=== PATIENT | male | born 1945 | race Caucasian/White ===

== ENCOUNTER 2023-10-13 08:50 | Outpatient (OUT) | payer MEDICARE, SELFPAY ==
[2023-10-14 04:07] LABS: PSA, Free 0.73 ng/mL; Prostate Specific Ag 3.5 ng/mL (0.0-4.0)
== END 2023-10-13 08:51 | disposition home or self-care (01) ==
PROVIDERS: Visit Provider Nurse Practitioner Family
DX: R97.20 Elevated prostate specific antigen [PSA] (principal)
CPT/HCPCS: 36415; 84153; 84154

== ENCOUNTER 2024-10-12 08:08 | Outpatient (OUT) | payer MEDICARE, SELFPAY ==
--- OUTSIDE RECORDS SUMMARY | 2024-10-12 08:12 | XMS_ITS | CCD ---
Author Organization [place] [facility] Care Team Providers Care Rotary Driller Name Role Phone BELLA DE PAZ Primary Care Unavailable GUANACO ESCAMILLA Attending Unavailable GUANACO ESCAMILLA Consulting Unavailable GUANACO ESCAMILLA Admitting Unavailable Problems Problem Classification Problem Date Documented Da te Episodic/Chronic Diabetes mellitus without complication (1 source) Other abnormal glucose; Translations: [OTHER ABNORMAL GLUCOSE] Onset: 03-26-2023 Episodic Essential hypertension (1 source) Essential (primary) hypertension; Translations: [ESSENTIAL PRIMARY HYPERTENSION] Onset: 03-26-2023 Chronic Other screening for suspected conditions (not mental disorders or infectious disease) (1 source) Encounter for screening for malignant neoplasm of prostate; Translations: [ENC SCREEN MALIG NEOPLASM PROSTATE] Onset: 03-26-2023 Episodic Results Test Name Value Interpretation Reference Range Facil ity INSULINon 03-23-2023 Insulin 10.4 uIU/mL Normal 2.6-24.9 [facility] Comment on above: Performed By: #### I NSULIN #### [facility] [address] [place] [address] Dr. Therese Vincent CBC AUTO DIFFon 03-22-2023 BASO # 0.1 103/ul Normal 0.0-0.1 [facility] Comment on above: Performed By: #### C BC #### [facility] [address] [place] [address] Dr. Therese Vincent Basophils/100 WBC (Bld) 0.9 % Normal 0.2-2.0 [facility] Comment on above: Performed By: #### C BC #### [facility] [address] [place] [address] Dr. Therese Vincent EO # 0.1 103/ul Normal 0.0-0.7 [facility] Comment on above: Performed By: #### C BC #### [facility] [address] [place] [address] Dr. Therese Vincent Eosinophils/100 WBC (Bld) 2.2 % Normal 0.9-7.0 [facility] Comment on above: Performed By: #### C BC #### [facility] [address] [place] [address] Dr. Therese Vincent Erythrocyte distribution width (RBC) [Ratio] 13.4 % Normal 11.0-15.0 [facility] Comment on above: Performed By: #### C BC #### [facility] [address] [place] [address] Dr. Therese Vincent Hematocrit (Bld) [Volume fraction] 44.8 % Normal 42.0-54.0 [facility] Comment on above: Performed By: #### C BC #### [facility] [address] [place] [address] Dr. Therese Vincent Hemoglobin (Bld) [Mass/Vol] 14.8 g/dL Normal 14.0-18.0 [facility] Comment on above: Performed By: #### C BC #### [facility] [address] [place] [address] Dr. Therese Vincent IG # 0.02 10e3/ul Normal 0.00-0.03 [facility] Comment on above: Performed By: #### C BC #### [facility] [address] [place] [address] Dr. Therese Vincent IG % 0.3 % Normal 0.0-0.5 [facility] Comment on above: Performed By: #### C BC #### [facility] [address] [place] [address] Dr. Therese Vincent LYMPH # 2.0 103/ul Normal 1.2-3.8 [facility] Comment on above: Performed By: #### C BC #### [facility] [address] [place] [address] Dr. Therese Vincent Lymphocytes/100 WBC (Bld) 33.9 % Normal 20.5-60.0 [facility] Comment on above: Performed By: #### C BC #### [facility] [address] [place] [address] Dr. Therese Vincent MANUAL DIFF REQ NO Normal [facility] Comment on above: Performed By: #### C BC #### [facility] [address] [place] [address] Dr. Therese Vincent MCH (RBC) [Entitic mass] 28.2 pg Normal 25.9-34.0 [facility] Comment on above: Performed By: #### C BC #### [facility] [address] [place] [address] Dr. Therese Vincent MCHC (RBC) [Mass/Vol] 33.0 g/dL Normal 29.9-35.2 [facility] Comment on above: Performed By: #### C BC #### [facility] [address] [place] [address] Dr. Therese Vincent MCV (RBC) [Entitic vol] 85.3 fL Normal 80.0-94.0 [facility] Comment on above: Performed By: #### C BC #### [facility] [address] [place] [address] Dr. Therese Vincent MONO # 0.3 103/ul Normal 0.3-0.8 [facility] Comment on above: Performed By: #### C BC #### [facility] [address] [place] [address] Dr. Therese Vincent Monocytes/100 WBC (Bld) 5.5 % Normal 1.7-12.0 [facility] Comment on above: Performed By: #### C BC #### [facility] [address] [place] [address] Dr. Therese Vincent NEUT # 3.3 103/ul Normal 1.4-6.5 [facility] Comment on above: Performed By: #### C BC #### [facility] [address] [place] [address] Dr. Therese Vincent Neutrophils/100 WBC (Bld) 57.2 % Normal 43.0-75.0 [facility] Comment on above: Performed By: #### C BC #### [facility] [address] [place] [address] Dr. Therese Vincent Platelet mean volume (Bld) [Entitic vol] 8.8 fL Critically low 9.5-13.5 [facility] Comment on above: Performed By: #### C BC #### [facility] [address] [place] [address] Dr. Therese Vincent PLT 321 103/ul Normal 150-450 [facility] Comment on above: Performed By: #### C BC #### [facility] [address] [place] [address] Dr. Therese Vincent RBC 5.25 106/ul Normal 4.70-6.10 [facility] Comment on above: Performed By: #### C BC #### [facility] [address] [place] [address] Dr. Therese Vincent WBC 5.8 103/ul Normal 4.0-11.0 [facility] Comment on above: Performed By: #### C BC #### [facility] [address] [place] [address] Dr. Therese Vincent FREE THYROXINE INDEX T7on FTI 2.70 Normal 1.30-4.50 [facility] Comment on above: Performed By: #### T SH, LIPID, CMP, T7, URIC #### [facility] [address] [place] [address] Dr. Therese Vincent T3U 29.0 % Critically low 33.0-40.0 [facility] Comment on above: Performed By: #### T SH, LIPID, CMP, T7, URIC #### [facility] [address] [place] [address] Dr. Therese Vincent T4 [Mass/Vol] 9.30 ug/dL Normal 4.50-12.10 [facility] Comment on above: Performed By: #### T SH, LIPID, CMP, T7, URIC #### [facility] [address] [place] [address] Dr. Therese Vincent GLYCOHEMOGLOBIN A1Con 2022 ADA RECOMMENDATION SEE BELOW Normal [facility] Comment on above: Result Comment: ADA RECOMMENDED LIMIT 4.0 - 6.0 ADA THERAPEUTIC TARGET < 7.0 ACTION SUGGESTED > 7.0 Performed By: #### A 1C #### [facility] [address] [address] [address] Therese Vincent Glucose [Mass/Vol] 108 mg/dL Normal [facility] Comment on above: Performed By: #### A 1C #### [facility] [address] [address] [address] Therese Vincent HbA1c (Bld) [Mass fraction] 5.4 % Normal 4.5-6.2 [facility] Comment on above: Performed By: #### A 1C #### [facility] [address] [address] [address] Therese Vincent LIPID PROFILEon 03-22-2023 CHOL-HDL RATIO NORM SEE BELOW Normal [facility] Comment on above: Result Comment: 3.3 - 4.4 LOW RISK 4.4 - 7.1 AVERAGE RISK 7.1 - 11.0 MODERATE RISK >11.0 HIGH RISK Performed By: #### T SH, LIPID, CMP, T7, URIC #### [facility] [address] [address] [address] Therese Vincent Cholesterol [Mass/Vol] 205 mg/dL Critically high <=200 [facility] Comment on above: Performed By: #### T SH, LIPID, CMP, T7, URIC #### [facility] [address] [address] [address] Therese Vincent Cholesterol in HDL [Mass/Vol] 47 mg/dL Normal 40-60 [facility] Comment on above: Performed By: #### T SH, LIPID, CMP, T7, URIC #### [facility] [address] [address] [address] Therese Vincent Cholesterol in LDL [Mass/Vol] 136.0 mg/dL Normal [facility] Comment on above: Performed By: #### T SH, LIPID, CMP, T7, URIC #### [facility] [address] [address] [address] Therese Vincent Cholesterol.total/Cho lesterol in HDL [Mass ratio] 4.4 {ratio} Normal [facility] Comment on above: Performed By: #### T SH, LIPID, CMP, T7, URIC #### [facility] [address] [address] [address] Therese Vincent HDL NORMAL > or = 60 mg/dl - LOW CARDIOVASCULAR RISK <40 mg/dl - HIGH CARDIOVASCULAR RISK Normal [facility] Comment on above: Performed By: #### T SH, LIPID, CMP, T7, URIC #### [facility] [address] [address] [address] Therese Vincent LDL CALC NORMAL SEE BELOW Normal [facility] Comment on above: Result Comment: <100 mg/dl OPTIMAL 100 - 129 mg/dl NEAR OR ABOVE OPTIMAL 130 - 159 mg/dl BORDERLINE HIGH 160 - 189 mg/dl HIGH >190 mg/dl VERY HIGH Performed By: #### T SH, LIPID, CMP, T7, URIC #### [facility] [address] [address] [address] Therese Vincent Triglyceride [Mass/Vol] 110 mg/dL Normal <=150 [facility] Comment on above: Performed By: #### T SH, LIPID, CMP, T7, URIC #### [facility] [address] [address] [address] Therese Vincent VLDL CALC 22.0 mg/dL Normal [facility] Comment on above: Performed By: #### T SH, LIPID, CMP, T7, URIC #### [facility] [address] [address] [address] Therese Vincent PROF 14(COMP METB)on 023 Albumin [Mass/Vol] 4.0 g/dL Normal 3.4-5.0 [facility] Comment on above: Performed By: #### T SH, LIPID, CMP, T7, URIC #### [facility] [address] [address] [address] Therese Vincent Albumin/Globulin [Mass ratio] 1.0 {ratio} Normal [facility] Comment on above: Performed By: #### T SH, LIPID, CMP, T7, URIC #### [facility] [address] [address] [address] Therese Vincent ALP [Catalytic activity/Vol] 77 U/L Normal 46-116 [facility] Comment on above: Performed By: #### T SH, LIPID, CMP, T7, URIC #### [facility] [address] [place] [address] Dr. Therese Vincent ALT [Catalytic activity/Vol] 27 U/L Normal 16-63 [facility] Comment on above: Performed By: #### T SH, LIPID, CMP, T7, URIC #### [facility] [address] [place] [address] Dr. Therese Vincent Anion gap [Moles/Vol] 12.8 mmol/L Normal [facility] Comment on above: Performed By: #### T SH, LIPID, CMP, T7, URIC #### [facility] [address] [place] [address] Dr. Therese Vincent AST [Catalytic activity/Vol] 14 U/L Critically low 15-37 [facility] Comment on above: Performed By: #### T SH, LIPID, CMP, T7, URIC #### [facility] [address] [place] [address] Dr. Therese Vincent Bilirubin [Mass/Vol] 0.6 mg/dL Normal 0.2-1.0 [facility] Comment on above: Performed By: #### T SH, LIPID, CMP, T7, URIC #### [facility] [address] [place] [address] Dr. Therese Vincent Calcium [Mass/Vol] 9.7 mg/dL Normal 8.5-10.1 [facility] Comment on above: Performed By: #### T SH, LIPID, CMP, T7, URIC #### [facility] [address] [place] [address] Dr. Therese Vincent Chloride [Moles/Vol] 106 mmol/L Normal 98-107 [facility] Comment on above: Performed By: #### T SH, LIPID, CMP, T7, URIC #### [facility] [address] [place] [address] Dr. Therese Vincent CO2 [Moles/Vol] 28.8 mmol/L Normal 21.0-32.0 [facility] Comment on above: Performed By: #### T SH, LIPID, CMP, T7, URIC #### [facility] [address] [address] [address] Therese Vincent Creatinine [Mass/Vol] 1.18 mg/dL Normal 0.70-1.30 [facility] Comment on above: Performed By: #### T SH, LIPID, CMP, T7, URIC #### [facility] [address] [place] [address] Dr. Therese Vincent EGFR-AF [place] >60 Normal >=60 [facility] Comment on above: Performed By: #### T SH, LIPID, CMP, T7, URIC #### [facility] [address] [place] [address] Dr. Therese Vincent EGFR-NON AF [place] =60 Normal >=60 [facility] Comment on above: Performed By: #### T SH, LIPID, CMP, T7, URIC #### [facility] [address] [place] [address] Dr. Therese Vincent Globulin (S) [Mass/Vol] 3.9 g/dL Normal [facility] Comment on above: Performed By: #### T SH, LIPID, CMP, T7, URIC #### [facility] [address] [place] [address] Dr. Therese Vincent Glucose [Mass/Vol] 109 mg/dL Critically high 74-106 [facility] Comment on above: Performed By: #### T SH, LIPID, CMP, T7, URIC #### [facility] [address] [place] [address] Dr. Therese Vincent Potassium [Moles/Vol] 4.6 mmol/L Normal 3.5-5.1 [facility] Comment on above: Performed By: #### T SH, LIPID, CMP, T7, URIC #### [facility] [address] [place] [address] Dr. Therese Vincent Protein [Mass/Vol] 7.9 g/dL Normal 6.4-8.2 [facility] Comment on above: Performed By: #### T SH, LIPID, CMP, T7, URIC #### [facility] [address] [place] [address] Dr. Therese Vincent Sodium [Moles/Vol] 143 mmol/L Normal 136-145 [facility] Comment on above: Performed By: #### T SH, LIPID, CMP, T7, URIC #### [facility] [address] [address] [address] Therese Vincent Urea nitrogen [Mass/Vol] 14.0 mg/dL Normal 7.0-18.0 [facility] Comment on above: Performed By: #### T SH, LIPID, CMP, T7, URIC #### [facility] [address] [address] [address] Therese Vincent Urea nitrogen/Creatinine [Mass ratio] 11.9 mg/mg Normal [facility] Comment on above: Performed By: #### T SH, LIPID, CMP, T7, URIC #### [facility] [address] [address] [address] Therese Vincent TSHon 03-22-2023 TSH 3.745 uIU/mL Critically high 0.358-3.740 [facility] Comment on above: Performed By: #### T SH, LIPID, CMP, T7, URIC #### [facility] [address] [address] [address] Therese Vincent URIC ACID SERUMon 03-22-2023 Urate [Mass/Vol] 3.7 mg/dL Normal 3.5-7.2 [facility] Comment on above: Performed By: #### T SH, LIPID, CMP, T7, URIC #### [facility] [address] [address] [address] Therese Vincent Encounters Encounter Date Encounter Type Care Provider Facility Start: 03-26-2023 Encounter for genera l adult medical examination without abnormal findings GUANACO ESCAMILLA [facility] Start: 03-22-2023 End: 03-23-2023 ambulatory BELLA DE PAZ Facility:[facility] Start: 03-22-2023 End: 03-23-2023 Encounter for general adult medical examination without abnormal findings BELLA DE PAZ Facility:[facility] Procedures Date Procedure Procedure Detail Performing Clinician Start: 03-22-2023 PSA screening BELLA PENA Comment on above: Performed By: #### [facility] #### [facility] [address] [place], [place] [address] Dr. Therese Vincent Payers Date Payer Category Payer Medicare [id number] 1945 Unknown [id number] Summary Purpose Family History No Family History Records Found Advance Directives No Advanced Directives Records Found Additional Source Comments (unrecognized sect ion and content) No Status Records Found INFORMATION SOURCE (unrecogn ized section and content) DATE CREATED AUTHOR 03/26/[address] [facility] FOR RECORDS PERTAINING TO PATIENTS WHO ARE OR HAVE BEEN ENROLLED IN A CHEMICAL DEPENDENCY/SUBSTANCEABUSE PROGRAM, SOME INFORMATION MAY BE OMITTED. This clinical summary was aggregated from multiple sources. Caution should be exercised in using it in the provision of clinical care. This summary normalizes information from multiple sources, and as a consequence, information in this document may materially change the coding, format and clinical context of patient data. In addition, data may be omitted in some cases. CLINICAL DECISIONS SHOULD BE BASED ON THE PRIMARY CLINICAL RECORDS. [facility]. provides no warranty or guarantee of the accuracy or completeness of information in this document.
[2024-10-12 08:30] LABS: Basophils Percent Auto 0.7 % (0.2-2.0); Eosinophils Absolute Auto 0.2 10^3/uL (0.0-0.7); Eosinophils Percent Auto 3.5 % (0.9-7.0); Hematocrit 41.4 % (42.0-54.0); Hemoglobin 13.6 g/dL (14.0-18.0); Immature Granulocytes Abs Auto 0.08 10^3/uL (0.00-0.03); Immature Granulocytes Pct Auto 1.4 % (0.0-0.5); Mean Corpuscular HGB Conc 32.9 g/dL (29.9-35.2); Mean Corpuscular Hemoglobin 28.1 pg (25.9-34.0); Mean Corpuscular Volume 85.5 fL (80.0-94.0); Mean Platelet Volume 8.9 fL (9.5-13.5); Monocytes Absolute Auto 0.3 10^3/uL (0.3-0.8); Neutrophils Percent Auto 53.4 % (43.0-75.0); Platelet Count 295 10^3/uL (150-450); Red Blood Count 4.84 10^6/uL (4.70-6.10); Red Cell Distribution Width 13.2 % (11.0-15.0); White Blood Count 5.7 10^3/uL (4.0-11.0)
[2024-10-12 08:59] LABS: Alanine Aminotransferase 28 U/L (16-63); Albumin Globulin Ratio 1.1; Albumin Level 3.6 g/dL (3.4-5.0); Alkaline Phosphatase 78 U/L (46-116); Anion Gap 11.7; Aspartate Amino Transferase 18 U/L (15-37); BUN Creatinine Ratio 15.7; Bilirubin Total 0.7 mg/dL (0.2-1.0); Calcium 8.8 mg/dL (8.5-10.1); Carbon Dioxide 29.1 mmol/L (21.0-32.0); Chloride 108 mmol/L (98-107); Chol HDL Ratio 4.1; Cholesterol 191 mg/dL (<=200); Estimated GFR (African America >60 (>=60 mL/min/1.73m^2); Estimated GFR (Non-African Ame >60 (>=60 mL/min/1.73m^2); Globulin 3.2 g/dL; Glucose 103 mg/dL (74-106); HDL Cholesterol 47 mg/dL (40-60); LDL Cholesterol Calculated 120.6 mg/dL; Potassium 4.8 mmol/L (3.5-5.1); Sodium 144 mmol/L (136-145); Thyroid Stimulating Hormone 3.142 uIU/mL (0.358-3.740); Total Protein 6.8 g/dL (6.4-8.2); Triglycerides 117 mg/dL (<=150); Uric Acid 3.8 mg/dL (3.5-7.2); VLDL CHOLESTEROL 23.4 mg/dL
[2024-10-12 09:26] LABS: Estimated Average Glucose 108 mg/dL; Glycohemoglobin A1C 5.4 % (4.5-6.2)
[2024-10-12 10:52] LABS: Prostate Specific Antigen Scrn 4.54 ng/mL (<=4.00)
[2024-10-14 10:07] LABS: Insulin 7.5 uIU/mL (2.6-24.9)
== END 2024-10-12 08:09 | disposition home or self-care (01) ==
LOC: LAB 08:10
PROVIDERS: PCP Nurse Practitioner Family; Visit Provider Nurse Practitioner Family
DX: R73.09 Other abnormal glucose (principal); I10 Essential (primary) hypertension; E03.9 Hypothyroidism, unspecified; Z12.5 Encounter for screening for malignant neoplasm of prostate
CPT/HCPCS: 36415; 80053; 80061; 83036; 83525; 84436; 84443; 84481; 84550; 85025; G0103

== ENCOUNTER 2024-10-16 08:40 | Outpatient (OUT) | payer MEDICARE, SELFPAY ==
[2024-10-17 04:08] LABS: PSA, Free 0.85 ng/mL; Prostate Specific Ag 4.2 ng/mL (0.0-4.0)
== END 2024-10-16 08:41 | disposition home or self-care (01) ==
LOC: LAB 08:43
PROVIDERS: PCP Nurse Practitioner Family; Visit Provider Nurse Practitioner Family
DX: R97.20 Elevated prostate specific antigen [PSA] (principal)
CPT/HCPCS: 36415; 84153; 84154

== ENCOUNTER 2024-10-29 13:54 | Outpatient (OUT) | payer MEDICARE, SELFPAY ==
--- OUTSIDE RECORDS SUMMARY | 2024-10-29 14:14 | XMS_ITS | CCD ---
Author Organization [facility] Care Team Providers [employer] Name Role Phone BELLA DE PAZ Primary [...] 03-23-2023 Insulin 10.4 uIU/mL Normal 2.6-24.9 [facility] Comment on above: Performed By: #### I NSULIN #### [facility] [address] [place] [address] Dr. Therese Vincent CBC AUTO DIFFon 03-22-2023 BASO # 0.1 103/ul Normal 0.0-0.1 [facility] Comment on above: Performed By: #### C BC #### [facility] [address] [place] [address] Dr. Therese Vincent Basophils/100 WBC (Bld) 0.9 % Normal 0.2-2.0 [facility] Comment on above: Performed By: #### C BC #### [facility] [address] [place] [address] Dr. Therese Vincent EO # 0.1 103/ul Normal 0.0-0.7 [facility] Comment on above: Performed By: #### C BC #### [facility] [address] [place] [address] Dr. Therese Vincent Eosinophils/100 WBC (Bld) 2.2 % Normal 0.9-7.0 [facility] Comment on above: Performed By: #### C BC #### [facility] [address] [place] [address] Dr. Therese Vincent Erythrocyte distribution width (RBC) [Ratio] 13.4 % Normal 11.0-15.0 [facility] Comment on above: Performed By: #### C BC #### [facility] [address] [place] [address] Dr. Therese Vincent Hematocrit (Bld) [Volume fraction] 44.8 % Normal 42.0-54.0 [facility] Comment on above: Performed By: #### C BC #### [facility] [address] [place] [address] Dr. Therese Vincent Hemoglobin (Bld) [Mass/Vol] 14.8 g/dL Normal 14.0-18.0 [facility] Comment on above: Performed By: #### C BC #### [facility] [address] [place] [address] Dr. Therese Vincent IG # 0.02 10e3/ul Normal 0.00-0.03 [facility] Comment on above: Performed By: #### C BC #### [facility] [address] [place] [address] Dr. Therese Vincent IG % 0.3 % Normal 0.0-0.5 [facility] Comment on above: Performed By: #### C BC #### [facility] [address] [place] [address] Dr. Therese Vincent LYMPH # 2.0 103/ul Normal 1.2-3.8 [facility] Comment on above: Performed By: #### C BC #### [facility] [address] [place] [address] Dr. Therese Vincent Lymphocytes/100 WBC (Bld) 33.9 % Normal 20.5-60.0 [facility] Comment on above: Performed By: #### C BC #### [facility] [address] [place] [address] Dr. Therese Vincent MANUAL DIFF REQ NO Normal [facility] Comment on above: Performed By: #### C BC #### [facility] [address] [place] [address] Dr. Therese Vincent MCH (RBC) [Entitic mass] 28.2 pg Normal 25.9-34.0 [facility] Comment on above: Performed By: #### C BC #### [facility] [address] [place] [address] Dr. Therese Vincent MCHC (RBC) [Mass/Vol] 33.0 g/dL Normal 29.9-35.2 [facility] Comment on above: Performed By: #### C BC #### [facility] [address] [place] [address] Dr. Therese Vincent MCV (RBC) [Entitic vol] 85.3 fL Normal 80.0-94.0 [facility] Comment on above: Performed By: #### C BC #### [facility] [address] [place] [address] Dr. Therese Vincent MONO # 0.3 103/ul Normal 0.3-0.8 [facility] Comment on above: Performed By: #### C BC #### [facility] [address] [place] [address] Dr. Therese Vincent Monocytes/100 WBC (Bld) 5.5 % Normal 1.7-12.0 [facility] Comment on above: Performed By: #### C BC #### [facility] [address] [place] [address] Dr. Therese Vincent NEUT # 3.3 103/ul Normal 1.4-6.5 [facility] Comment on above: Performed By: #### C BC #### [facility] [address] [place] [address] Dr. Therese Vincent Neutrophils/100 WBC (Bld) 57.2 % Normal 43.0-75.0 [facility] Comment on above: Performed By: #### C BC #### [facility] [address] [place] [address] Dr. Therese Vincent Platelet mean volume (Bld) [Entitic vol] 8.8 fL Critically low 9.5-13.5 [facility] Comment on above: Performed By: #### C BC #### [facility] [address] [place] [address] Dr. Therese Vincent PLT 321 103/ul Normal 150-450 [facility] Comment on above: Performed By: #### C BC #### [facility] [address] [place] [address] Dr. Therese Vincent RBC 5.25 106/ul Normal 4.70-6.10 [facility] Comment on above: Performed By: #### C BC #### [facility] [address] [place] [address] Dr. Therese Vincent WBC 5.8 103/ul Normal 4.0-11.0 [facility] Comment on above: Performed By: #### C BC #### [facility] [address] [place] [address] Dr. Therese Vincent FREE THYROXINE INDEX T7on FTI 2.70 Normal 1.30-4.50 [facility] Comment on above: Performed By: #### T SH, LIPID, CMP, T7, URIC #### [facility] [address] [place] [address] Dr. Therese Vincent T3U 29.0 % Critically low 33.0-40.0 [facility] Comment on above: Performed By: #### T SH, LIPID, CMP, T7, URIC #### [facility] [address] [place] [address] Dr. Therese Vincent T4 [Mass/Vol] 9.30 ug/dL Normal 4.50-12.10 [facility] Comment on above: Performed By: #### T SH, LIPID, CMP, T7, URIC #### [facility] [address] [place] [address] Dr. Therese Vincent GLYCOHEMOGLOBIN A1Con 2022 ADA RECOMMENDATION SEE BELOW Normal [facility] Comment on above: Result Comment: ADA RECOMMENDED LIMIT 4.0 - 6.0 ADA THERAPEUTIC TARGET < 7.0 ACTION SUGGESTED > 7.0 Performed By: #### A 1C #### [facility] [address] [address] [address] Therese Vincent Glucose [Mass/Vol] 108 mg/dL Normal [facility] Comment on above: Performed By: #### A 1C #### [facility] [address] [address] [address] Therese Vincent HbA1c (Bld) [Mass fraction] 5.4 % Normal 4.5-6.2 [facility] Comment on above: Performed By: #### A 1C #### [facility] [address] [address] [address] Therese Vincent LIPID PROFILEon 03-22-2023 CHOL-HDL RATIO NORM SEE BELOW Normal [facility] Comment on above: Result Comment: 3.3 - 4.4 LOW RISK 4.4 - 7.1 AVERAGE RISK 7.1 - 11.0 MODERATE RISK >11.0 HIGH RISK Performed By: #### T SH, LIPID, CMP, T7, URIC #### [facility] [address] [address] [address] Therese Vincent Cholesterol [Mass/Vol] 205 mg/dL Critically high <=200 [facility] Comment on above: Performed By: #### T SH, LIPID, CMP, T7, URIC #### [facility] [address] [address] [address] Therese Vincent Cholesterol in HDL [Mass/Vol] 47 mg/dL Normal 40-60 [facility] Comment on above: Performed By: #### T SH, LIPID, CMP, T7, URIC #### [facility] [address] [address] [address] Therese Vincent Cholesterol in LDL [Mass/Vol] 136.0 mg/dL Normal [facility] Comment on above: Performed By: #### T SH, LIPID, CMP, T7, URIC #### [facility] [address] [address] [address] Therese Vincent Cholesterol.total/Cho lesterol in HDL [Mass ratio] 4.4 {ratio} Normal [facility] Comment on above: Performed By: #### T SH, LIPID, CMP, T7, URIC #### [facility] [address] [address] [address] Therese Vincent HDL NORMAL > or = 60 mg/dl - LOW CARDIOVASCULAR RISK <40 mg/dl - HIGH CARDIOVASCULAR RISK Normal [facility] Comment on above: Performed By: #### T SH, LIPID, CMP, T7, URIC #### [facility] [address] [address] [address] Therese Vincent LDL CALC NORMAL SEE BELOW Normal [facility] Comment on above: Result Comment: <100 mg/dl OPTIMAL 100 - 129 mg/dl NEAR OR ABOVE OPTIMAL 130 - 159 mg/dl BORDERLINE HIGH 160 - 189 mg/dl HIGH >190 mg/dl VERY HIGH Performed By: #### T SH, LIPID, CMP, T7, URIC #### [facility] [address] [address] [address] Therese Vincent Triglyceride [Mass/Vol] 110 mg/dL Normal <=150 [facility] Comment on above: Performed By: #### T SH, LIPID, CMP, T7, URIC #### [facility] [address] [address] [address] Therese Vincent VLDL CALC 22.0 mg/dL Normal [facility] Comment on above: Performed By: #### T SH, LIPID, CMP, T7, URIC #### [facility] [address] [address] [address] Therese Vincent PROF 14(COMP METB)on 023 Albumin [Mass/Vol] 4.0 g/dL Normal 3.4-5.0 [facility] Comment on above: Performed By: #### T SH, LIPID, CMP, T7, URIC #### [facility] [address] [address] [address] Therese Vincent Albumin/Globulin [Mass ratio] 1.0 {ratio} Normal [facility] Comment on above: Performed By: #### T SH, LIPID, CMP, T7, URIC #### [facility] [address] [address] [address] Therese Vincent ALP [Catalytic activity/Vol] 77 U/L Normal 46-116 [facility] Comment on above: Performed By: #### T SH, LIPID, CMP, T7, URIC #### [facility] [address] [place] [address] Dr. Therese Vincent ALT [Catalytic activity/Vol] 27 U/L Normal 16-63 [facility] Comment on above: Performed By: #### T SH, LIPID, CMP, T7, URIC #### [facility] [address] [place] [address] Dr. Therese Vincent Anion gap [Moles/Vol] 12.8 mmol/L Normal [facility] Comment on above: Performed By: #### T SH, LIPID, CMP, T7, URIC #### [facility] [address] [place] [address] Dr. Therese Vincent AST [Catalytic activity/Vol] 14 U/L Critically low 15-37 [facility] Comment on above: Performed By: #### T SH, LIPID, CMP, T7, URIC #### [facility] [address] [place] [address] Dr. Therese Vincent Bilirubin [Mass/Vol] 0.6 mg/dL Normal 0.2-1.0 [facility] Comment on above: Performed By: #### T SH, LIPID, CMP, T7, URIC #### [facility] [address] [place] [address] Dr. Therese Vincent Calcium [Mass/Vol] 9.7 mg/dL Normal 8.5-10.1 [facility] Comment on above: Performed By: #### T SH, LIPID, CMP, T7, URIC #### [facility] [address] [place] [address] Dr. Therese Vincent Chloride [Moles/Vol] 106 mmol/L Normal 98-107 [facility] Comment on above: Performed By: #### T SH, LIPID, CMP, T7, URIC #### [facility] [address] [place] [address] Dr. Therese Vincent CO2 [Moles/Vol] 28.8 mmol/L Normal 21.0-32.0 [facility] Comment on above: Performed By: #### T SH, LIPID, CMP, T7, URIC #### [facility] [address] [address] [address] Therese Vincent Creatinine [Mass/Vol] 1.18 mg/dL Normal 0.70-1.30 [facility] Comment on above: Performed By: #### T SH, LIPID, CMP, T7, URIC #### [facility] [address] [place] [address] Dr. Therese Vincent EGFR-AF TANZANIAN >60 Normal >=60 [facility] Comment on above: Performed By: #### T SH, LIPID, CMP, T7, URIC #### [facility] [address] [place] [address] Dr. Therese Vincent EGFR-NON AF TANZANIAN =60 Normal >=60 [facility] Comment on above: Performed By: #### T SH, LIPID, CMP, T7, URIC #### [facility] [address] [place] [address] Dr. Therese Vincent Globulin (S) [Mass/Vol] 3.9 g/dL Normal [facility] Comment on above: Performed By: #### T SH, LIPID, CMP, T7, URIC #### [facility] [address] [place] [address] Dr. Therese Vincent Glucose [Mass/Vol] 109 mg/dL Critically high 74-106 [facility] Comment on above: Performed By: #### T SH, LIPID, CMP, T7, URIC #### [facility] [address] [place] [address] Dr. Therese Vincent Potassium [Moles/Vol] 4.6 mmol/L Normal 3.5-5.1 [facility] Comment on above: Performed By: #### T SH, LIPID, CMP, T7, URIC #### [facility] [address] [place] [address] Dr. Therese Vincent Protein [Mass/Vol] 7.9 g/dL Normal 6.4-8.2 [facility] Comment on above: Performed By: #### T SH, LIPID, CMP, T7, URIC #### [facility] [address] [place] [address] Dr. Therese Vincent Sodium [Moles/Vol] 143 mmol/L Normal 136-145 [facility] Comment on above: Performed By: #### T SH, LIPID, CMP, T7, URIC #### [facility] [address] [address] [address] Therese Vincent Urea nitrogen [Mass/Vol] 14.0 mg/dL Normal 7.0-18.0 [facility] Comment on above: Performed By: #### T SH, LIPID, CMP, T7, URIC #### [facility] [address] [address] [address] Therese Vincent Urea nitrogen/Creatinine [Mass ratio] 11.9 mg/mg Normal [facility] Comment on above: Performed By: #### T SH, LIPID, CMP, T7, URIC #### [facility] [address] [address] [address] Therese Vincent TSHon 03-22-2023 TSH 3.745 uIU/mL Critically high 0.358-3.740 [facility] Comment on above: Performed By: #### T SH, LIPID, CMP, T7, URIC #### [facility] [address] [address] [address] Therese Vincent URIC ACID SERUMon 03-22-2023 Urate [Mass/Vol] 3.7 mg/dL Normal 3.5-7.2 [facility] Comment on above: Performed By: #### T SH, LIPID, CMP, T7, URIC #### [facility] [address] [address] [address] Therese Vincent Encounters Encounter Date Encounter Type Care Provider Facility Start: 03-26-2023 Encounter for genera l adult medical examination without abnormal findings GUANACO ESCAMILLA [facility] Start: 03-22-2023 End: 03-23-2023 ambulatory BELLA DE PAZ Facility:[facility] Start: 03-22-2023 End: 03-23-2023 Encounter for general adult medical examination without abnormal findings BELLA DE PAZ Facility:[facility] Procedures Date Procedure Procedure Detail Performing Clinician Start: 03-22-2023 PSA screening BELLA PENA Comment on above: Performed By: #### P [facility] #### [facility] [address] [place], [place] [address] Dr. Therese Vincent Payers Date Payer Category Payer Medicare [id number] 1945 Unknown [id number] Summary Purpose Family History No Family History Records Found Advance Directives No Advanced Directives Records Found Additional Source Comments (unrecognized sect ion and content) No Status Records Found INFORMATION SOURCE (unrecogn ized section and content) DATE CREATED AUTHOR 03/26/2023 [facility] FOR RECORDS PERTAINING TO PATIENTS WHO ARE [...] BE BASED ON THE PRIMARY CLINICAL RECORDS. [employer] [facility] [employer] [facility]. provides no warranty or guarantee of the accuracy or completeness of information in this document.
[2024-10-29 14:16] LABS: Basophils Percent Auto 0.5 % (0.2-2.0); Eosinophils Absolute Auto 0.1 10^3/uL (0.0-0.7); Hematocrit 39.4 % (42.0-54.0); Hemoglobin 12.9 g/dL (14.0-18.0); Immature Granulocytes Abs Auto 0.03 10^3/uL (0.00-0.03); Immature Granulocytes Pct Auto 0.4 % (0.0-0.5); Lymphocytes Absolute Auto 2.7 10^3/uL (1.2-3.8); Mean Corpuscular HGB Conc 32.7 g/dL (29.9-35.2); Mean Corpuscular Volume 85.7 fL (80.0-94.0); Monocytes Absolute Auto 0.3 10^3/uL (0.3-0.8); Monocytes Percent Auto 3.7 % (1.7-12.0); Neutrophils Absolute Auto 4.8 10^3/uL (1.4-6.5); Neutrophils Percent Auto 60.4 % (43.0-75.0); Platelet Count 332 10^3/uL (150-450); Red Cell Distribution Width 13.2 % (11.0-15.0); White Blood Count 7.9 10^3/uL (4.0-11.0)
== END 2024-10-29 13:55 | disposition home or self-care (01) ==
PROVIDERS: PCP Nurse Practitioner Family; Visit Provider Nurse Practitioner Family
DX: D64.9 Anemia, unspecified (principal)
CPT/HCPCS: 36415; 85025

== ENCOUNTER 2024-11-02 10:00 | Outpatient (REF) | payer MEDICARE, SELFPAY ==
[2024-11-02 10:54] LABS: Internal Control Within Normal Limits; Occult Blood Positive
== END 2024-11-02 10:01 | disposition home or self-care (01) ==
LOC: LAB 10:00
PROVIDERS: PCP Nurse Practitioner Family; Visit Provider Nurse Practitioner Family
DX: D64.9 Anemia, unspecified (principal)
CPT/HCPCS: G0328

== ENCOUNTER 2024-11-06 10:53 | Outpatient (OUT) | payer MEDICARE, SELFPAY ==
--- OUTSIDE RECORDS SUMMARY | 2024-11-06 11:37 | XMS_ITS | CCD ---
Author Organization [facility] Care Team Providers Care Safety Lamp Keeper Name Role Phone BELLA DE PAZ Primary [...] 03-23-2023 Insulin 10.4 uIU/mL Normal 2.6-24.[address] [facility] Comment on above: Performed By: #### I NSULIN #### [facility] [address] [place] [address] Dr. Therese Vincent CBC AUTO DIFFon 03-22-2023 BASO # 0.1 103/ul Normal 0.0-0.[address] [facility] Comment on above: Performed By: #### C BC #### [facility] [address] [place] [address] Dr. Therese Vincent Basophils/100 WBC (Bld) 0.9 % Normal 0.2-2.[address] [facility] Comment on above: Performed By: #### C BC #### [facility] [address] [place] [address] Dr. Therese Vincent EO # 0.1 103/ul Normal 0.0-0.[address] [facility] Comment on above: Performed By: #### C BC #### [facility] [address] [place] [address] Dr. Therese Vincent Eosinophils/100 WBC (Bld) 2.2 % Normal 0.9-7.[address] [facility] Comment on above: Performed By: #### C BC #### [facility] [address] [place] [address] Dr. Therese Vincent Erythrocyte distribution width (RBC) [Ratio] 13.4 % Normal 11.0-15.0 [facility] Comment on above: Performed By: #### C BC #### [facility] [address] [place] [address] Dr. Therese Vincent Hematocrit (Bld) [Volume fraction] 44.8 % Normal 42.0-54.0 [facility] Comment on above: Performed By: #### C BC #### [facility] [address] [place] [address] Dr. Therese Vincent Hemoglobin (Bld) [Mass/Vol] 14.8 g/dL Normal 14.0-18.[address] [facility] Comment on above: Performed By: #### C BC #### [facility] [address] [place] [address] Dr. Therese Vincent IG # 0.02 10e3/ul Normal 0.00-0.03 [facility] Comment on above: Performed By: #### C BC #### [facility] [address] [place] [address] Dr. Therese Vincent IG % 0.3 % Normal 0.0-0.[address] [facility] Comment on above: Performed By: #### C BC #### [facility] [address] [place] [address] Dr. Therese Vincent LYMPH # 2.0 103/ul Normal 1.2-3.[address] [facility] Comment on above: Performed By: #### C BC #### [facility] [address] [place] [address] Dr. Therese Vincent Lymphocytes/100 WBC (Bld) 33.9 % Normal 20.5-60.[address] [facility] Comment on above: Performed By: #### C BC #### [facility] [address] [place] [address] Dr. Therese Vincent MANUAL DIFF REQ NO Normal [facility] Comment on above: Performed By: #### C BC #### [facility] [address] [place] [address] Dr. Therese Vincent MCH (RBC) [Entitic mass] 28.2 pg Normal 25.9-34.0 [facility] Comment on above: Performed By: #### C BC #### [facility] [address] [place] [address] Dr. Therese Vincent MCHC (RBC) [Mass/Vol] 33.0 g/dL Normal 29.9-35.2 [facility] Comment on above: Performed By: #### C BC #### [facility] [address] [place] [address] Dr. Therese Vincent MCV (RBC) [Entitic vol] 85.3 fL Normal 80.0-94.0 [facility] Comment on above: Performed By: #### C BC #### [facility] [address] [place] [address] Dr. Therese Vincent MONO # 0.3 103/ul Normal 0.3-0.8 [facility] Comment on above: Performed By: #### C BC #### [facility] [address] [place] [address] Dr. Therese Vincent Monocytes/100 WBC (Bld) 5.5 % Normal 1.7-12.0 [facility] Comment on above: Performed By: #### C BC #### [facility] [address] [place] [address] Dr. Therese Vincent NEUT # 3.3 103/ul Normal 1.4-6.[address] [facility] Comment on above: Performed By: #### C BC #### [facility] [address] [place] [address] Dr. Therese Vincent Neutrophils/100 WBC (Bld) 57.2 % Normal 43.0-75.[address] [facility] Comment on above: Performed By: #### C BC #### [facility] [address] [place] [address] Dr. Therese Vincent Platelet mean volume (Bld) [Entitic vol] 8.8 fL Critically low 9.5-13.5 [facility] Comment on above: Performed By: #### C BC #### [facility] [address] [place] [address] Dr. Therese Vincent PLT 321 103/ul Normal 150-450 [facility] Comment on above: Performed By: #### C BC #### [facility] [address] [place] [address] Dr. Therese Vincent RBC 5.25 106/ul Normal 4.70-6.10 [facility] Comment on above: Performed By: #### C BC #### [facility] [address] [place] [address] Dr. Therese Vincent WBC 5.8 103/ul Normal 4.0-11.0 [facility] Comment on above: Performed By: #### C BC #### [facility] [address] [place] [address] Dr. Therese Vincent FREE THYROXINE INDEX T7on FTI 2.70 Normal 1.30-4.50 [facility] Comment on above: Performed By: #### T SH, LIPID, CMP, T7, URIC #### [facility] [address] [place] [address] Dr. Therese Vincent T3U 29.0 % Critically low 33.0-40.0 [facility] Comment on above: Performed By: #### T SH, LIPID, CMP, T7, URIC #### [facility] [address] [place] [address] Dr. Therese Vincent T4 [Mass/Vol] 9.30 ug/dL Normal 4.50-12.10 [facility] Comment on above: Performed By: #### T SH, LIPID, CMP, T7, URIC #### [facility] [address] [place] [address] Dr. Therese Vincent GLYCOHEMOGLOBIN A1Con 2022 ADA RECOMMENDATION SEE BELOW Normal [facility] Comment on above: Result Comment: ADA RECOMMENDED LIMIT 4.0 - 6.0 ADA THERAPEUTIC TARGET < 7.0 ACTION SUGGESTED > 7.0 Performed By: #### A 1C #### [facility] [address] [address] [address] Therese Vincent Glucose [Mass/Vol] 108 mg/dL Normal [facility] Comment on above: Performed By: #### A 1C #### [facility] [address] [address] [address] Therese Vincent HbA1c (Bld) [Mass fraction] 5.4 % Normal 4.5-6.2 [facility] Comment on above: Performed By: #### A 1C #### [facility] [address] [address] [address] Therese Vincent LIPID PROFILEon 03-22-2023 CHOL-HDL RATIO NORM SEE BELOW Normal [facility] Comment on above: Result Comment: 3.3 - 4.4 LOW RISK 4.4 - 7.1 AVERAGE RISK 7.1 - 11.0 MODERATE RISK >11.0 HIGH RISK Performed By: #### T SH, LIPID, CMP, T7, URIC #### [facility] [address] [address] [address] Therese Vincent Cholesterol [Mass/Vol] 205 mg/dL Critically high <=200 [facility] Comment on above: Performed By: #### T SH, LIPID, CMP, T7, URIC #### [facility] [address] [address] [address] Therese Vincent Cholesterol in HDL [Mass/Vol] 47 mg/dL Normal 40-60 [facility] Comment on above: Performed By: #### T SH, LIPID, CMP, T7, URIC #### [facility] [address] [address] [address] Therese Vincent Cholesterol in LDL [Mass/Vol] 136.0 mg/dL Normal [facility] Comment on above: Performed By: #### T SH, LIPID, CMP, T7, URIC #### [facility] [address] [address] [address] Therese Vincent Cholesterol.total/Cho lesterol in HDL [Mass ratio] 4.4 {ratio} Normal [facility] Comment on above: Performed By: #### T SH, LIPID, CMP, T7, URIC #### [facility] [address] [address] [address] Therese Vincent HDL NORMAL > or = 60 mg/dl - LOW CARDIOVASCULAR RISK <40 mg/dl - HIGH CARDIOVASCULAR RISK Normal [facility] Comment on above: Performed By: #### T SH, LIPID, CMP, T7, URIC #### [facility] [address] [address] [address] Therese Vincent LDL CALC NORMAL SEE BELOW Normal [facility] Comment on above: Result Comment: <100 mg/dl OPTIMAL 100 - 129 mg/dl NEAR OR ABOVE OPTIMAL 130 - 159 mg/dl BORDERLINE HIGH 160 - 189 mg/dl HIGH >190 mg/dl VERY HIGH Performed By: #### T SH, LIPID, CMP, T7, URIC #### [facility] [address] [address] [address] Therese Vincent Triglyceride [Mass/Vol] 110 mg/dL Normal <=150 [facility] Comment on above: Performed By: #### T SH, LIPID, CMP, T7, URIC #### [facility] [address] [address] [address] Therese Vincent VLDL CALC 22.0 mg/dL Normal [facility] Comment on above: Performed By: #### T SH, LIPID, CMP, T7, URIC #### [facility] [address] [address] [address] Therese Vincent PROF 14(COMP METB)on 023 Albumin [Mass/Vol] 4.0 g/dL Normal 3.4-5.0 [facility] Comment on above: Performed By: #### T SH, LIPID, CMP, T7, URIC #### [facility] [address] [address] [address] Therese Vincent Albumin/Globulin [Mass ratio] 1.0 {ratio} Normal [facility] Comment on above: Performed By: #### T SH, LIPID, CMP, T7, URIC #### [facility] [address] [address] [address] Therese Vincent ALP [Catalytic activity/Vol] 77 U/L Normal 46-116 [facility] Comment on above: Performed By: #### T SH, LIPID, CMP, T7, URIC #### [facility] [address] [place] [address] Dr. Therese Vincent ALT [Catalytic activity/Vol] 27 U/L Normal 16-63 [facility] Comment on above: Performed By: #### T SH, LIPID, CMP, T7, URIC #### [facility] [address] [place] [address] Dr. Therese Vincent Anion gap [Moles/Vol] 12.8 mmol/L Normal Th e [facility] Comment on above: Performed By: #### T SH, LIPID, CMP, T7, URIC #### [facility] [address] [place] [address] Dr. Therese Vincent AST [Catalytic activity/Vol] 14 U/L Critically low 15-37 [facility] Comment on above: Performed By: #### T SH, LIPID, CMP, T7, URIC #### [facility] [address] [place] [address] Dr. Therese Vincent Bilirubin [Mass/Vol] 0.6 mg/dL Normal 0.2-1.0 [facility] Comment on above: Performed By: #### T SH, LIPID, CMP, T7, URIC #### [facility] [address] [place] [address] Dr. Therese Vincent Calcium [Mass/Vol] 9.7 mg/dL Normal 8.5-10.1 [facility] Comment on above: Performed By: #### T SH, LIPID, CMP, T7, URIC #### [facility] [address] [place] [address] Dr. Therese Vincent Chloride [Moles/Vol] 106 mmol/L Normal 98-107 [facility] Comment on above: Performed By: #### T SH, LIPID, CMP, T7, URIC #### [facility] [address] [place] [address] Dr. Therese Vincent CO2 [Moles/Vol] 28.8 mmol/L Normal 21.0-32.0 [facility] Comment on above: Performed By: #### T SH, LIPID, CMP, T7, URIC #### [facility] [address] [address] [address] Therese Vincent Creatinine [Mass/Vol] 1.18 mg/dL Normal 0.70-1.30 [facility] Comment on above: Performed By: #### T SH, LIPID, CMP, T7, URIC #### [facility] [address] [place] [address] Dr. Therese Vincent EGFR-AF AZERBAIJANI >60 Normal >=60 [facility] Comment on above: Performed By: #### T SH, LIPID, CMP, T7, URIC #### [facility] [address] [place] [address] Dr. Therese Vincent EGFR-NON AF AZERBAIJANI =60 Normal >=60 [facility] Comment on above: Performed By: #### T SH, LIPID, CMP, T7, URIC #### [facility] [address] [place] [address] Dr. Therese Vincent Globulin (S) [Mass/Vol] 3.9 g/dL Normal [facility] Comment on above: Performed By: #### T SH, LIPID, CMP, T7, URIC #### [facility] [address] [place] [address] Dr. Therese Vincent Glucose [Mass/Vol] 109 mg/dL Critically high 74-106 [facility] Comment on above: Performed By: #### T SH, LIPID, CMP, T7, URIC #### [facility] [address] [place] [address] Dr. Therese Vincent Potassium [Moles/Vol] 4.6 mmol/L Normal 3.5-5.1 [facility] Comment on above: Performed By: #### T SH, LIPID, CMP, T7, URIC #### [facility] [address] [place] [address] Dr. Therese Vincent Protein [Mass/Vol] 7.9 g/dL Normal 6.4-8.2 [facility] Comment on above: Performed By: #### T SH, LIPID, CMP, T7, URIC #### [facility] [address] [place] [address] Dr. Therese Vincent Sodium [Moles/Vol] 143 mmol/L Normal 136-145 [facility] Comment on above: Performed By: #### T SH, LIPID, CMP, T7, URIC #### [facility] [address] [address] [address] Therese Vincent Urea nitrogen [Mass/Vol] 14.0 mg/dL Normal 7.0-18.0 [facility] Comment on above: Performed By: #### T SH, LIPID, CMP, T7, URIC #### [facility] [address] [address] [address] Therese Vincent Urea nitrogen/Creatinine [Mass ratio] 11.9 mg/mg Normal [facility] Comment on above: Performed By: #### T SH, LIPID, CMP, T7, URIC #### [facility] [address] [address] [address] Therese Vincent TSHon 03-22-2023 TSH 3.745 uIU/mL Critically high 0.358-3.740 [facility] Comment on above: Performed By: #### T SH, LIPID, CMP, T7, URIC #### [facility] [address] [address] [address] Therese Vincent URIC ACID SERUMon 03-22-2023 Urate [Mass/Vol] 3.7 mg/dL Normal 3.5-7.2 [facility] Comment on above: Performed By: #### T SH, LIPID, CMP, T7, URIC #### [facility] [address] [address] [address] Therese Vincent Encounters Encounter Date Encounter Type Care Provider Facility Start: 03-26-2023 Encounter for genera l adult medical examination without abnormal findings GUANACO ESCAMILLA [facility] Start: 03-22-2023 End: 03-23-2023 ambulatory BELLA DE PAZ Facility:[facility] Start: 03-22-2023 End: 03-23-2023 Encounter for general adult medical examination without abnormal findings BELLA DE PAZ Facility:[facility] Procedures Date Procedure Procedure Detail Performing Clinician Start: 03-22-2023 PSA screening BELLA PENA Comment on above: Performed By: #### P [facility] #### [facility] [address] [place], [place] [address] Dr. Therese Vincent Payers Date Payer Category Payer Medicare [id number] 1945 Unknown [id number] Summary Purpose Family History No Family History Records Found Advance Directives No Advanced Directives Records Found Additional Source Comments (unrecognized sect ion and content) No Status Records Found INFORMATION SOURCE (unrecogn ized section and content) DATE CREATED AUTHOR 03/26/2023 The [facility] FOR RECORDS PERTAINING TO PATIENTS WHO ARE [...] BE BASED ON THE PRIMARY CLINICAL RECORDS. [employer] [facility]. provides no warranty or guarantee of the accuracy or completeness of information in this document.
== END 2024-11-06 10:54 | disposition home or self-care (01) ==
LOC: LAB 10:56
PROVIDERS: PCP Nurse Practitioner Family; Visit Provider Nurse Practitioner Family
DX: D64.9 Anemia, unspecified (principal)
CPT/HCPCS: 36415; 83540

== ENCOUNTER 2024-12-13 11:15 | Outpatient (OUT) | payer MEDICARE, SELFPAY ==
--- OUTSIDE RECORDS SUMMARY | 2024-12-13 11:29 | XMS_ITS | CCD ---
Author Organization [facility] Care Team Providers Care Brood Station Manager Name Role Phone BELLA DE PAZ Primary Care Unavailable GUANACO CAMPOS Attending Unavailable GUANACO CAMPOS Consulting Unavailable GUANACO CAMPOS Admitting Unavailable Kostas BOWSER Attending Unavailable GUANACO CAMPOS Primary Care Physician Allergies Allergy Classification Reported Allergen(s) Allergy Type Date of Onset Reaction(s) Facility (2 sources) Cetirizine; Translations: [ZyrTE] Drug Allergy felt off [facility] Repository Medications Current Medications Medication Drug Class(es) Dates Sig (Normalized) Sig (Original) allopurinol 300 mg oral tablet (1 source) Xanthine Oxidase Inhibitor Start: 11-19-2024 take 1 tablet by mouth once daily allopurinol 300 mg Tab 300 mg = 1 tab(s), Oral, Daily, Refills(s) 0 Start Date: 11/19/24 Status: Ordered amLODIPine 5 mg / olmesartan medoxomil 20 mg oral tablet (1 source) Dihydropyridine Calcium Channel Kailey, Angiotensin 2 Receptor Kailey Start: 11-19-2024 amlodipine-olmesa rtan 5 mg-20 mg oral tablet 1 tab(s), Oral, Daily, 30 tab(s), Refill(s) 0 Start Date: 11/19/24 Status: Ordered ferrous sulfate 325 mg oral tablet (1 source) Start: 11-19-2024 ferrous sulfate 325 mg Tab 325 mg = 1 tab(s), Oral, MonWedFri, Refills(s) 0 Start Date: 11/19/24 Status: Ordered Problems Problem Classification Problem Date Documented Date Episodic/Chronic Deficiency and other anemia (2 sources) Iron deficiency anemia; Translations: [Iron deficiency anemia, unspecified] Onset: 12-05-19 Episodic Deficiency and other anemia (1 source) Anemia 11-15-2024 Episodic Diabetes mellitus without complication (1 source) Other abnormal glucose; Translations: [OTHER ABNORMAL GLUCOSE] Onset: 03-26-20 Episodic Disorders of lipid metabolism (1 source) Pure hypercholesterolemia 11-15-2024 Chroni c Esophageal disorders (2 sources) Gastroesophageal reflux disease without esophagitis; Translations: [Gastro-esophageal reflux disease without esophagitis] Onset: 12-05-19 Chronic Essential hypertension (2 sources) Essential (primary) hypertension; Translations: [Essential hypertension] Onset: 03-26-2011-15-2024 Chronic Gout and other crystal arthropathies (1 source) Gout 11-15-2024 Chronic Other gastrointestinal disorders (1 source) Abnormal feces; Translations: [Other fecal abnormalities] Onset: 12-05-19 Episodic Other gastrointestinal disorders (2 sources) Occult blood in stools 11-19-2024 Episodic Other screening for suspected conditions (not mental disorders or infectious disease) (2 sources) Encounter for screening for malignant neoplasm of prostate; Translations: [Raised prostate specific antigen] Onset: 03-26-2011-19-2024 Episodic Other upper respiratory disease (1 source) Seasonal allergic rhinitis 11-15-2024 Chronic Results Test Name Value Interpretation Reference Range Facility Ambulatory Visit Summaryon 0 12-05-2024 Ambulatory Visit Summary Ambulatory Visit Summary GRAJEDAMAMTA :1945 Visit Date:12/05/2024 Ambulatory Visit Instructions Your Care Team Attending Physician - Kostas BOWSER MD Primary Care Physician - GUANACO CAMPOS CNP This Is Your Medications List Contact prescribing physician if questions or concerns allopurinol (allopurinol 300 mg Tab) amlodipine-olmesartan (amlodipine-olmesartan 5 mg-20 mg oral tablet) ferrous sulfate (ferrous sulfate 325 mg Tab) Procedures Performed Colonoscopy, Colonoscopy, Reattachment of finger, Repair of left inguinal hernia. Discharge Vitals Heart Rate (Peripheral) 57 Respiratory Rate 16 Blood Pressure 137/75 Height 165 cm Height 65 in Weight 62.2 kg Weight 137.127 lb BMI 22.85 Medications What How Much When Instructions Unchanged allopurinol (allopurinol 300 mg Tab) 1 Tablets By Mouth Every day Contact prescribing physician if questions or concerns Unchanged amlodipine-olmesartan (amlodipine-olmesartan 5 mg-20 mg oral tablet) 1 Tablets By Mouth Every day Contact prescribing physician if questions or concerns Unchanged ferrous sulfate (ferrous sulfate 325 mg Tab) 1 Tablets By Mouth Tuesday Contact prescribing physician if questions or concerns Allergies ZyrTEC (felt off) Problems Ongoing - Any problem that you are currently receiving treatment for. Anemia Elevated PSA Essential hypertension Gout Positive occult stool blood test Pure hypercholesterolemia Seasonal allergic rhinitis Patient Survey You may receive a survey via text or e-mail asking about your office visit. Please share your experience with us by completing your survey. We appreciate your feedback and thank you for choosing us for your care. Normal [facility] INSULINon 03-23-2023 Insulin 10.4 uIU/mL Normal 2.6-24.9 [facility] Comment on above: Performed By: #### I NSULIN #### [facility] [address] [place] [address] Dr. Therese Vincent CBC AUTO DIFFon 03-22-2023 BASO # 0.1 103/ul Normal 0.0-0.1 [facility] Comment on above: Performed By: #### C BC #### [facility] [address] [place] [address] Dr. Therese Vincent Basophils/100 WBC (Bld) 0.9 % Normal 0.2-2.0 [facility] Comment on above: Performed By: #### C BC #### [facility] [address] [place] [address] Dr. Therese Vincent EO # 0.1 103/ul Normal 0.0-0.7 [facility] Comment on above: Performed By: #### C BC #### [facility] [address] [place] [address] Dr. Therese Vincent Eosinophils/100 WBC (Bld) 2.2 % Normal 0.9-7.0 [facility] Comment on above: Performed By: #### C BC #### [facility] [address] [place] [address] Dr. Therese Vincent Erythrocyte distribution width (RBC) [Ratio] 13.4 % Normal 11.0-15.0 [facility] Comment on above: Performed By: #### C BC #### [facility] [address] [place] [address] Dr. Therese Vincent Hematocrit (Bld) [Volume fraction] 44.8 % Normal 42.0-54.0 [facility] Comment on above: Performed By: #### C BC #### [facility] [address] [place] [address] Dr. Therese Vincent Hemoglobin (Bld) [Mass/Vol] 14.8 g/dL Normal 14.0-18.0 [facility] Comment on above: Performed By: #### C BC #### [facility] [address] [place] [address] Dr. Therese Vincent IG # 0.02 10e3/ul Normal 0.00-0.03 [facility] Comment on above: Performed By: #### C BC #### [facility] [address] [place] [address] Dr. Therese Vincent IG % 0.3 % Normal 0.0-0.5 [facility] Comment on above: Performed By: #### C BC #### [facility] [address] [place] [address] Dr. Therese Vincent LYMPH # 2.0 103/ul Normal 1.2-3.8 [facility] Comment on above: Performed By: #### C BC #### [facility] [address] [place] [address] Dr. Therese Vincent Lymphocytes/100 WBC (Bld) 33.9 % Normal 20.5-60.0 [facility] Comment on above: Performed By: #### C BC #### [facility] [address] [place] [address] Dr. Therese Vincent MANUAL DIFF REQ NO Normal [facility] Comment on above: Performed By: #### C BC #### [facility] [address] [place] [address] Dr. Therese Vincent MCH (RBC) [Entitic mass] 28.2 pg Normal 25.9-34.0 [facility] Comment on above: Performed By: #### C BC #### [facility] [address] [place] [address] Dr. Therese Vincent MCHC (RBC) [Mass/Vol] 33.0 g/dL Normal 29.9-35.2 [facility] Comment on above: Performed By: #### C BC #### [facility] [address] [address] [address] Therese Vincent MCV (RBC) [Entitic vol] 85.3 fL Normal 80.0-94.0 [facility] Comment on above: Performed By: #### C BC #### [facility] [address] [address] [address] Therese Vincent MONO # 0.3 103/ul Normal 0.3-0.8 [facility] Comment on above: Performed By: #### C BC #### [facility] [address] [place] [address] Dr. Therese Vincent Monocytes/100 WBC (Bld) 5.5 % Normal 1.7-12.0 [facility] Comment on above: Performed By: #### C BC #### [facility] [address] [place] [address] Dr. Therese Vincent NEUT # 3.3 103/ul Normal 1.4-6.5 [facility] Comment on above: Performed By: #### C BC #### [facility] [address] [place] [address] Dr. Therese Vincent Neutrophils/100 WBC (Bld) 57.2 % Normal 43.0-75.0 [facility] Comment on above: Performed By: #### C BC #### [facility] [address] [address] [address] Therese Vincent Platelet mean volume (Bld) [Entitic vol] 8.8 fL Critically low 9.5-13.5 [facility] Comment on above: Performed By: #### C BC #### [facility] [address] [place] [address] Dr. Therese Vincent PLT 321 103/ul Normal 150-450 [facility] Comment on above: Performed By: #### C BC #### [facility] [address] [place] [address] Dr. Therese Vincent RBC 5.25 106/ul Normal 4.70-6.10 [facility] Comment on above: Performed By: #### C BC #### [facility] [address] [place] [address] Dr. Therese Vincent WBC 5.8 103/ul Normal 4.0-11.0 [facility] Comment on above: Performed By: #### C BC #### [facility] [address] [place] [address] Dr. Threese Vincent FREE THYROXINE INDEX T7on FTI 2.70 Normal 1.30-4.50 [facility] Comment on above: Performed By: #### T SH, LIPID, CMP, T7, URIC #### [facility] [address] [place] [address] Dr. Therese Vincent T3U 29.0 % Critically low 33.0-40.0 [facility] Comment on above: Performed By: #### T SH, LIPID, CMP, T7, URIC #### [facility] [address] [place] [address] Dr. Therese Vincent T4 [Mass/Vol] 9.30 ug/dL Normal 4.50-12.10 [facility] Comment on above: Performed By: #### T SH, LIPID, CMP, T7, URIC #### [facility] [address] [place] [address] Dr. Therese Vincent GLYCOHEMOGLOBIN A1Con 2022 ADA RECOMMENDATION SEE BELOW Normal [facility] Comment on above: Result Comment: ADA RECOMMENDED LIMIT 4.0 - 6.0 ADA THERAPEUTIC TARGET < 7.0 ACTION SUGGESTED > 7.0 Performed By: #### A 1C #### [facility] [address] [place] [address] Dr. Therese Vincent Glucose [Mass/Vol] 108 mg/dL Normal [facility] Comment on above: Performed By: #### A 1C #### [facility] [address] [place] [address] Dr. Therese Vincent HbA1c (Bld) [Mass fraction] 5.4 % Normal 4.5-6.2 [facility] Comment on above: Performed By: #### A 1C #### [facility] [address] [address] [address] Therese Vincent LIPID PROFILEon 03-22-2023 CHOL-HDL RATIO NORM SEE BELOW Normal [facility] Comment on above: Result Comment: 3.3 - 4.4 LOW RISK 4.4 - 7.1 AVERAGE RISK 7.1 - 11.0 MODERATE RISK >11.0 HIGH RISK Performed By: #### T SH, LIPID, CMP, T7, URIC #### [facility] [address] [address] [address] Therese Vincent Cholesterol [Mass/Vol] 205 mg/dL Critically high <=200 [facility] Comment on above: Performed By: #### T SH, LIPID, CMP, T7, URIC #### [facility] [address] [address] [address] Therese Vincent Cholesterol in HDL [Mass/Vol] 47 mg/dL Normal 40-60 [facility] Comment on above: Performed By: #### T SH, LIPID, CMP, T7, URIC #### [facility] [address] [address] [address] Therese Vincent Cholesterol in LDL [Mass/Vol] 136.0 mg/dL Normal [facility] Comment on above: Performed By: #### T SH, LIPID, CMP, T7, URIC #### [facility] [address] [address] [address] Therese Vincent Cholesterol.total/Ch olesterol in HDL [Mass ratio] 4.4 {ratio} Normal [facility] Comment on above: Performed By: #### T SH, LIPID, CMP, T7, URIC #### [facility] [address] [address] [address] Therese Vincent HDL NORMAL > or = 60 mg/dl - LO W CARDIOVASCULAR RISK <40 mg/dl - HIGH CARDIOVASCULAR RISK Normal [facility] Comment on above: Performed By: #### T SH, LIPID, CMP, T7, URIC #### [facility] [address] [address] [address] Therese Vincent LDL CALC NORMAL SEE BELOW Normal [facility] Comment on above: Result Comment: <100 mg/dl OPTIMAL 100 - 129 mg/dl NEAR OR ABOVE OPTIMAL 130 - 159 mg/dl BORDERLINE HIGH 160 - 189 mg/dl HIGH >190 mg/dl VERY HIGH Performed By: #### T SH, LIPID, CMP, T7, URIC #### [facility] [address] [address] [address] Therese Vincent Triglyceride [Mass/Vol] 110 mg/dL Normal <=150 [facility] Comment on above: Performed By: #### T SH, LIPID, CMP, T7, URIC #### [facility] [address] [address] [address] Therese Vincent VLDL CALC 22.0 mg/dL Normal [facility] Comment on above: Performed By: #### T SH, LIPID, CMP, T7, URIC #### [facility] [address] [address] [address] Therese Vincent PROF 14(COMP METB)on 023 Albumin [Mass/Vol] 4.0 g/dL Normal 3.4-5.0 [facility] Comment on above: Performed By: #### T SH, LIPID, CMP, T7, URIC #### [facility] [address] [address] [address] Therese Vincent Albumin/Globulin [Mass ratio] 1.0 {ratio} Normal [facility] Comment on above: Performed By: #### T SH, LIPID, CMP, T7, URIC #### [facility] [address] [address] [address] Therese Vincent ALP [Catalytic activity/Vol] 77 U/L Normal 46-116 [facility] Comment on above: Performed By: #### T SH, LIPID, CMP, T7, URIC #### [facility] [address] [address] [address] Therese Vincent ALT [Catalytic activity/Vol] 27 U/L Normal 16-63 [facility] Comment on above: Performed By: #### T SH, LIPID, CMP, T7, URIC #### [facility] [address] [address] [address] Therese Vincent Anion gap [Moles/Vol] 12.8 mmol/L Normal [facility] Comment on above: Performed By: #### T SH, LIPID, CMP, T7, URIC #### [facility] [address] [place] [address] Dr. Therese Vincent AST [Catalytic activity/Vol] 14 U/L Critically low 15-37 [facility] Comment on above: Performed By: #### T SH, LIPID, CMP, T7, URIC #### [facility] [address] [place] [address] Dr. Therese Vincent Bilirubin [Mass/Vol] 0.6 mg/dL Normal 0.2-1.0 [facility] Comment on above: Performed By: #### T SH, LIPID, CMP, T7, URIC #### [facility] [address] [place] [address] Dr. Therese Vincent Calcium [Mass/Vol] 9.7 mg/dL Normal 8.5-10.1 [facility] Comment on above: Performed By: #### T SH, LIPID, CMP, T7, URIC #### [facility] [address] [place] [address] Dr. Therese Vincent Chloride [Moles/Vol] 106 mmol/L Normal 98-107 [facility] Comment on above: Performed By: #### T SH, LIPID, CMP, T7, URIC #### [facility] [address] [place] [address] Dr. Therese Vincent CO2 [Moles/Vol] 28.8 mmol/L Normal 21.0-32.0 [facility] Comment on above: Performed By: #### T SH, LIPID, CMP, T7, URIC #### [facility] [address] [place] [address] Dr. Therese Vincent Creatinine [Mass/Vol] 1.18 mg/dL Normal 0.70-1.30 [facility] Comment on above: Performed By: #### T SH, LIPID, CMP, T7, URIC #### [facility] [address] [place] [address] Dr. Therese Vincent EGFR-AF TUVALUAN >60 Normal >=60 [facility] Comment on above: Performed By: #### T SH, LIPID, CMP, T7, URIC #### [facility] [address] [address] [address] Therese Vincent EGFR-NON AF TUVALUAN =60 Normal >=60 [facility] Comment on above: Performed By: #### T SH, LIPID, CMP, T7, URIC #### [facility] [address] [place] [address] Dr. Therese Vincent Globulin (S) [Mass/Vol] 3.9 g/dL Normal [facility] Comment on above: Performed By: #### T SH, LIPID, CMP, T7, URIC #### [facility] [address] [place] [address] Dr. Therese Vincent Glucose [Mass/Vol] 109 mg/dL Critically high 74-106 [facility] Comment on above: Performed By: #### T SH, LIPID, CMP, T7, URIC #### [facility] [address] [place] [address] Dr. Therese Vincent Potassium [Moles/Vol] 4.6 mmol/L Normal 3.5-5.1 [facility] Comment on above: Performed By: #### T SH, LIPID, CMP, T7, URIC #### [facility] [address] [place] [address] Dr. Therese Vincent Protein [Mass/Vol] 7.9 g/dL Normal 6.4-8.2 [facility] Comment on above: Performed By: #### T SH, LIPID, CMP, T7, URIC #### [facility] [address] [place] [address] Dr. Therese Vincent Sodium [Moles/Vol] 143 mmol/L Normal 136-145 [facility] Comment on above: Performed By: #### T SH, LIPID, CMP, T7, URIC #### [facility] [address] [place] [address] Dr. Therese Vincent Urea nitrogen [Mass/Vol] 14.0 mg/dL Normal 7.0-18.0 [facility] Comment on above: Performed By: #### T SH, LIPID, CMP, T7, URIC #### [facility] [address] [address] [address] Therese Vincent Urea nitrogen/Creatinine [Mass ratio] 11.9 mg/mg Normal [facility] Comment on above: Performed By: #### T SH, LIPID, CMP, T7, URIC #### [facility] [address] [place] [address] Dr. Therese Vincent TSHon 03-22-2023 TSH 3.745 uIU/mL Critically high 0.358-3.740 [facility] Comment on above: Performed By: #### T SH, LIPID, CMP, T7, URIC #### [facility] [address] [place] [address] Dr. Therese Vincent URIC ACID SERUMon 03-22-2023 Urate [Mass/Vol] 3.7 mg/dL Normal 3.5-7.[address] [facility] Comment on above: Performed By: #### T SH, LIPID, CMP, T7, URIC #### [facility] [address] [place] [address] Dr. Therese Vincent Vital Signs Date Time Vital Sign Value Performing Clinician Adriannai rin 12-05-2024 13:55-0500 Blood Pressure Location Kostas BOWSER [facility] 12-05-2024 13:55-0500 Diastolic blood pressure 75 mm[Hg] Kostas BOWSER [facility] 12-05-2024 13:55-0500 Heart rate 57 /min Kostas BOWSER [facility] 12-05-2024 13:55-0500 Respiratory rate 16 /min Kostas BOWSER [facility] 12-05-2024 13:55-0500 Systolic blood pressure 137 mm[Hg] Kostas BOWSER [facility] Encounters Encounter Date Encounter Type Care Provider Facility Start: 12-05-2024 End: 12-05-2024 ambulatory Kostas BOWSER Facility:[facility] Start: 12-05-2024 End: 12-05-2024 Patient encounter procedure Kostas Lisa NILL [facility] Start: 11-08-2024 ambulatory Kostas NILL Facility:[facility] Start: 03-26-2023 Encounter for genera l adult medical examination without abnormal findings GUANACO CAMPOS [facility] Start: 03-22-2023 End: 03-23-2023 ambulatory BELLA DE PAZ Facility: Start: 03-22-2023 End: 03-23-2023 Encounter for general adult medical examination without abnormal findings BELLA DE PAZ Facility:[facility] Procedures Date Procedure Procedure Detail Performing Clinician Start: 03-22-2023 PSA screening BELLA PENA Comment on above: Performed By: #### P [facility] #### [facility] [address] [place] [address] Dr. Therese Vincent Colonoscopy Kostas NILL Colonoscopy Kostas NILL Reattachment of finger Tigre josefina NILL Repair of left ingui nal hernia Kostas NILL Immunizations Immunization Date Immunization Notes Care Provider Loyda hayes 02-26-2021 SARS-CoV-2 (COVID-19 ) mRNA-1273 vaccine Kostas NILL [facility] Comment on above: Result Comment: 2023: [id number] 01-29-2021 SARS-CoV-2 (COVID-19 ) mRNA-1273 vaccine Kostas NILL [facility] Comment on above: Result Comment: 2023: [id number] Payers Date Payer Category Payer Medicare [id number] 1945 Unknown [id number] 1945 Unknown [id number] Social History Date Type Detail Facility Start: 12-05-2024 Tobacco smoking status Ex-smoker (fi nding) [facility] [place] Tobacco smoking status Never [facility] [place] Sex Assigned At Male [facility] Functional Status Date Assessment Result Facility 12-05-2024 Functional Status N/A [facility] [place] Clinical Note 12-05-2024 Note Date & Type Note Facility 12-05-2024 Note [facility] Offi ce/Clinic Note Chief Complaint consultation for positive occult stool and anemia HPI Staff 79 year old male presents on consultation from Radha Campos for anemia and positive occult stool. Labs completed 11/06 with H/H 12.9 and 39.4, iron 65. Previous colonoscopy completed greater than 10 years ago- operative report could not be found. reports colonoscopy was normal. Denies abdominal or rectal pain. No rectal bleeding or change in bowel habits. Denies nausea or vomiting. No unexplained weight loss. No known family history of colon cancer. History of Present Illness 79 yo male with h/o htn, hypercholesterolemia, gout, referred for positive fecal occult blood test and iron deficiency anemia; patient reports one 1 month h/o frequent GERD, no dysphagia or early satiety; 3 lb weight loss; no N/V or bowel changes; no gross blood in stools; recent positive fecal occult blood test; only abd operation left inguinal hernia repair; [place] over 10 [place] ago[place], reportedly normal, no previous EGD; no asa or NSAID use; no tobacco use; no fmhx of GI malignancy or IBD. Review of Systems PHQ Score Initial Depression Screen Score: 0 SCORE ROS - Provider Constitutional: no fever, no sweats, no weight loss. Eyes: no glasses, no blurred vision, no visual loss. ENMT: no dentures, no hoarseness, no swallowing difficulties, no hearing loss, no ear infection(s), no nose bleeds. Cardiovascular: normal blood pressure, no chest pain, regular heartbeat, no heart murmur. Respiratory: no shortness of breath, no cough, no asthma, no wheezing. Gastrointestinal: no nausea, no vomiting, no diarrhea, no constipation, no blood in stool, no change in bowel habits, no abdominal pain, no hepatitis. Genitourinary: no kidney stones, no urine infection, no dysuria. Musculoskeletal: no pain, no weakness. Skin: no changing moles, no rash, no skin lumps. Neurologic: no seizures, no epilepsy, no headache. Psychiatric: no emotional or psychiatric problem. Heme/Lymph: no bleeding problems, no anemia, no blood clots, no transfusions. Allergy/Immunologic: no swollen lymph nodes/glands, no IV drug abuse. Other: Additional ROS info: Except as noted in the above Review of Systems and in the History of Present Illness, all other systems have been reviewed and are negative or noncontributory. Physical Exam Vitals & Measurements HR: 57(Peripheral) RR: 16 BP: 137/75 HT: 65 in HT: 165 cm WT: 62.2 kg WT: 137.127 lb BMI: 22.85 HEENT: normal conjunctiva, sclera clear, no scleral icterus, EOM intact, PERRLA, oral mucosa moist without lesions. Neck: trachea midline, no mass, symmetric, no thyromegaly or nodules, no adenopathy Respiratory: lungs CTA, respirations non labored. Cardiovascular: regular rate and rhythm, no murmur, no pedal edema or varicosities. Gastrointestinal: soft, non distended, no tenderness, no masses, no palpable hernias, diastasis recti no, no hepatosplenomegaly; normal bs Lymphatic: no cervical adenopathy, no supraclavicular adenopathy. Musculoskeletal: normal gait, digits and nails without infection, nodes, cyanosis, clubbing. 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 Tests: labs reviewed,review of old records completed , Discussed surgical options, risks, and possible complications with patient. Assessment/Plan 1. Positive fecal occult blood test (R19.5: Other fecal abnormalities) plan EGD and colonoscopy under anesthesia for further evaluation; informed consent obtained. 2. Chronic GERD (K21.9: Gastro-esophageal reflux disease without esophagitis) see # 1 3. Iron deficiency anemia (D50.9: Iron deficiency anemia, unspecified) see # 1 Follow-up No qualifying data available Problem List/Past Medical History Ongoing Anemia Chronic GERD Elevated PSA Essential hypertension Gout Iron deficiency anemia Positive fecal occult blood test Positive occult stool blood test Pure hypercholesterolemia Seasonal allergic rhinitis Historical No qualifying data Procedure/Surgical History Colonoscopy, Colonoscopy, Reattachment of finger, Repair of left inguinal hernia. Medications allopurinol 300 mg Tab, 300 mg= 1 tab(s), Oral, Daily amlodipine-olmesartan 5 mg-20 mg oral tablet, 1 tab(s), Oral, Daily ferrous sulfate 325 mg Tab, 325 mg= 1 tab(s), Oral, MonWedFri Allergies ZyrTEC (felt off) Social History Alcohol - Denies Alcohol Use, 12/05/2024 Substance Abuse - Denies Substance Abuse, 12/05/2024 Tobacco Former smoker, quit more than 30 days ago Tobacco Use:. Never Smokeless Tobacco Use:. Cigarettes, 1 per day. Started age 15.0 Years. Stopped age 34 Years., 12/05/2024 Family History Leukemia: Mother. Immunizations Vaccine Date Status Comments SARS-CoV-2 (COVID-19) mRNA-1273 vaccine 02/26/2021 Recorded (more content not included)... [facility] Comment on above: Result Comment: Elec tronically Signed By: NIELS DALAL, Kostas Bolivar\Date and Time Signed: 12/05/24 14:30 EST Evaluation + Plan note Note Date & Type Note Facility Evaluation + Plan note No data available for this section [facility] Discharge instructions Note Date & Type Note Facility Hospital Discharge instructions No data available for this section [facility] [place] Progress note Note Date & Type Note Facility Progress note No data available for this section [facility] [place] [facility] Summary Purpose Family History No Family History Records FoundNo Family History Records Found No data available for this section Advance Directives No Advanced Directives Records FoundNo Advanced Directives Records Found Additional Source Comments (unrecognized sect ion and content) No Status Records FoundNo Status Records Found INFORMATION SOURCE (unrecogn ized section and content) DATE CREATED AUTHOR 03/26/2023 [facility] DATE CREATED AUTHOR AUTHOR'S ORGANIZ ATION 12/07/2024 Gabriel Mikey [facility] Patient Care team informatio n (unrecognized section and content) Personnel Name: FRANCINE ALAN GUANACO Ramo Address: Address: [address] [place], [place] [address] FOR RECOR[facility] PERTAINING TO PATIENTS WHO ARE [...] BE BASED ON THE PRIMARY CLINICAL RECORDS. [facility] [employer] provides no warranty or guarantee of the accuracy or completeness of information in this document.
== END 2024-12-13 11:16 | disposition home or self-care (01) ==
LOC: PST 11:15
PROVIDERS: PCP Nurse Practitioner Family; Visit Provider Surgery
DX: Z01.818 Encounter for other preprocedural examination (principal); R19.5 Other fecal abnormalities; Z12.11 Encounter for screening for malignant neoplasm of colon

== ENCOUNTER 2024-12-26 07:12 | Day surgery (SDC) | payer MEDICARE, SELFPAY ==
--- NOTE | 2024-12-26 | OP_ITS ---
OPERATION DATE: 12/26/2024 PREOPERATIVE DIAGNOSIS: Refractory gastroesophageal reflux disease, as well as positive fecal occult blood test. POSTOPERATIVE DIAGNOSIS: Small hiatal hernia, severe sigmoid diverticulosis with a pedunculated sigmoid polyp, approximately 2.2 cm. PROCEDURE: EGD and colonoscopy to cecum with hot snare polypectomy x1. SURGEON: Kostas Pascual M.D. ANESTHESIA: Monitored anesthesia care. ESTIMATED BLOOD LOSS: Less than 1 mL. INDICATIONS AND CONSENT: Patient is a 79-year-old male with history of refractory gastroesophageal reflux disease, as well as positive fecal occult blood test. Indications, risks, benefits, alternatives of proceeding with EGD and colonoscopy were explained extensively to the patient, including the risks of bleeding, aspiration, esophageal/gastric/duodenal or colonic perforation or anesthetic complications. All of his questions were answered. Informed consent was obtained. PROCEDURE: Patient brought to the operating room, placed in the left lateral decubitus position. Monitored anesthesia care was provided. Bite block was placed in the patient?s mouth. Scope was inserted into the oropharynx. Under direct visualization, it was advanced into the esophagus, past the cricopharyngeus, down to the stomach. The stomach was insufflated with air. The pylorus was traversed down to the descending portion of the duodenum. There was no evidence of duodenitis or ulceration. There was no scarring within the pyloric channel. Scope was pulled back into the stomach and retroflexed. There was noted to be a small, sliding type hiatal hernia. No gastric mucosal abnormalities. No ulcerations or bleeding. The GE junction was noted at approximately 35 cm. It was a normal GE junction without Agarwal?s changes or ulcerations. The remainder of the esophagus was unremarkable. The scope was then withdrawn. Patient was then positioned for colonoscopy. Rectal exam was performed, which showed no masses or blood. The scope was then inserted into the anal canal. Under direct visualization, it was advanced. It was advanced to the cecum where cecal markings were clearly identified. There was noted to be a good prep. Upon withdrawal of the scope, mucosal surfaces were carefully examined. There were no mass lesions or inflammatory changes. In the sigmoid colon, there was severe sigmoid diverticulosis without inflammatory changes or scarring. In the mid sigmoid, there was noted to be a large pedunculated, lobulated polyp, approximately 2 cm in greatest diameter. This was removed with hot snare with good hemostasis. The scope was retroflexed in the anal canal. There was no significant hemorrhoidal disease. The scope was then withdrawn. The patient tolerated procedure well, was sent to recovery room in good condition. Follow up surveillance colonoscopy likely in one year, but will depend on pathology results. CC: ALAN Villavicencio
--- OUTSIDE RECORDS SUMMARY | 2024-12-26 07:14 | XMS_ITS | CCD ---
Author Organization [facility] Care Team Providers Care Photoengraving Photographer Name Role Phone BELLA DE PAZ Primary Care Unavailable GUANACO CAMPOS Attending Unavailable GUANACO CAMPOS Consulting Unavailable GUANACO CAMPOS Admitting Unavailable Kostas BOWSER Attending Unavailable GUANACO CAMPOS Primary Care Physician [phone] Allergies Allergy Classification Reported Allergen(s) Allergy Type Date of Onset Reaction(s) Facility (2 sources) Cetirizine; Translations: [ZyrTE] Drug Allergy felt off [facility] Repository Medications Current Medications Medication Drug Class(es) [...] for choosing us for your care. Normal [facility] INSULINon 03-23-2023 Insulin 10.4 uIU/mL Normal 2.6-24.9 [facility] Comment on above: Performed By: #### I NSULIN #### [facility] [address] [place] [address] Dr. Therese Vincent CBC AUTO DIFFon 03-22-2023 BASO # 0.1 103/ul Normal 0.0-0.1 [facility] Comment on above: Performed By: #### C BC #### [facility] [address] [place] [address] Dr. Therese Vincent Basophils/100 WBC (Bld) 0.9 % Normal 0.2-2.0 [facility] Comment on above: Performed By: #### C BC #### [facility] [address] [place] [address] Dr. Therese Vincent EO # 0.1 103/ul Normal 0.0-0.7 [facility] Comment on above: Performed By: #### C BC #### [facility] [address] [place] [address] Dr. Therese Vincent Eosinophils/100 WBC (Bld) 2.2 % Normal 0.9-7.0 [facility] Comment on above: Performed By: #### C BC #### [facility] [address] [place] [address] Dr. Therese Vincent Erythrocyte distribution width (RBC) [Ratio] 13.4 % Normal 11.0-15.0 [facility] Comment on above: Performed By: #### C BC #### [facility] [address] [place] [address] Dr. Therese Vincent Hematocrit (Bld) [Volume fraction] 44.8 % Normal 42.0-54.0 [facility] Comment on above: Performed By: #### C BC #### [facility] [address] [place] [address] Dr. Therese Vincent Hemoglobin (Bld) [Mass/Vol] 14.8 g/dL Normal 14.0-18.0 [facility] Comment on above: Performed By: #### C BC #### [facility] [address] [place] [address] Dr. Therese Vincent IG # 0.02 10e3/ul Normal 0.00-0.03 [facility] Comment on above: Performed By: #### C BC #### [facility] [address] [place] [address] Dr. Therese Vincent IG % 0.3 % Normal 0.0-0.5 [facility] Comment on above: Performed By: #### C BC #### [facility] [address] [place] [address] Dr. Therese Vincent LYMPH # 2.0 103/ul Normal 1.2-3.8 [facility] Comment on above: Performed By: #### C BC #### [facility] [address] [place] [address] Dr. Therese Vincent Lymphocytes/100 WBC (Bld) 33.9 % Normal 20.5-60.0 [facility] Comment on above: Performed By: #### C BC #### [facility] [address] [place] [address] Dr. Therese Vincent MANUAL DIFF REQ NO Normal [facility] Comment on above: Performed By: #### C BC #### [facility] [address] [place] [address] Dr. Therese Vincent MCH (RBC) [Entitic mass] 28.2 pg Normal 25.9-34.0 [facility] Comment on above: Performed By: #### C BC #### [facility] [address] [place] [address] Dr. Therese Vincent MCHC (RBC) [Mass/Vol] 33.0 g/dL Normal 29.9-35.2 [facility] Comment on above: Performed By: #### C BC #### [facility] [address] [address] [address] Therese Vincent MCV (RBC) [Entitic vol] 85.3 fL Normal 80.0-94.0 [facility] Comment on above: Performed By: #### C BC #### [facility] [address] [address] [address] Therese Vincent MONO # 0.3 103/ul Normal 0.3-0.8 [facility] Comment on above: Performed By: #### C BC #### [facility] [address] [place] [address] Dr. Therese Vincent Monocytes/100 WBC (Bld) 5.5 % Normal 1.7-12.0 [facility] Comment on above: Performed By: #### C BC #### [facility] [address] [place] [address] Dr. Therese Vincent NEUT # 3.3 103/ul Normal 1.4-6.5 [facility] Comment on above: Performed By: #### C BC #### [facility] [address] [place] [address] Dr. Therese Vincent Neutrophils/100 WBC (Bld) 57.2 % Normal 43.0-75.0 [facility] Comment on above: Performed By: #### C BC #### [facility] [address] [address] [address] Therese Vincent Platelet mean volume (Bld) [Entitic vol] 8.8 fL Critically low 9.5-13.5 [facility] Comment on above: Performed By: #### C BC #### [facility] [address] [place] [address] Dr. Therese Vincent PLT 321 103/ul Normal 150-450 [facility] Comment on above: Performed By: #### C BC #### [facility] [address] [place] [address] Dr. Therese Vincent RBC 5.25 106/ul Normal 4.70-6.10 [facility] Comment on above: Performed By: #### C BC #### [facility] [address] [place] [address] Dr. Therese Vincent WBC 5.8 103/ul Normal 4.0-11.0 [facility] Comment on above: Performed By: #### C BC #### [facility] [address] [place] [address] Dr. Therese Vincent FREE THYROXINE INDEX T7on FTI 2.70 Normal 1.30-4.50 [facility] Comment on above: Performed By: #### T SH, LIPID, CMP, T7, URIC #### [facility] [address] [place] [address] Dr. Therese Vincent T3U 29.0 % Critically low 33.0-40.0 [facility] Comment on above: Performed By: #### T SH, LIPID, CMP, T7, URIC #### [facility] [address] [place] [address] Dr. Therese Vincent T4 [Mass/Vol] 9.30 ug/dL Normal 4.50-12.10 [facility] Comment on above: Performed By: #### T SH, LIPID, CMP, T7, URIC #### [facility] [address] [place] [address] Dr. Therese Vincent GLYCOHEMOGLOBIN A1Con 2022 ADA RECOMMENDATION SEE BELOW Normal [facility] Comment on above: Result Comment: ADA RECOMMENDED LIMIT 4.0 - 6.0 ADA THERAPEUTIC TARGET < 7.0 ACTION SUGGESTED > 7.0 Performed By: #### A 1C #### [facility] [address] [place] [address] Dr. Therese Vincent Glucose [Mass/Vol] 108 mg/dL Normal [facility] Comment on above: Performed By: #### A 1C #### [facility] [address] [place] [address] Dr. Therese Vincent HbA1c (Bld) [Mass fraction] 5.4 % Normal 4.5-6.2 [facility] Comment on above: Performed By: #### A 1C #### [facility] [address] [address] [address] Therese Vincent LIPID PROFILEon 03-22-2023 CHOL-HDL RATIO NORM SEE BELOW Normal [facility] Comment on above: Result Comment: 3.3 - 4.4 LOW RISK 4.4 - 7.1 AVERAGE RISK 7.1 - 11.0 MODERATE RISK >11.0 HIGH RISK Performed By: #### T SH, LIPID, CMP, T7, URIC #### [facility] [address] [address] [address] Therese Vincent Cholesterol [Mass/Vol] 205 mg/dL Critically high <=200 [facility] Comment on above: Performed By: #### T SH, LIPID, CMP, T7, URIC #### [facility] [address] [address] [address] Therese Vincent Cholesterol in HDL [Mass/Vol] 47 mg/dL Normal 40-60 [facility] Comment on above: Performed By: #### T SH, LIPID, CMP, T7, URIC #### [facility] [address] [address] [address] Therese Vincent Cholesterol in LDL [Mass/Vol] 136.0 mg/dL Normal [facility] Comment on above: Performed By: #### T SH, LIPID, CMP, T7, URIC #### [facility] [address] [address] [address] Therese Vincent Cholesterol.total/Ch olesterol in HDL [Mass ratio] 4.4 {ratio} Normal [facility] Comment on above: Performed By: #### T SH, LIPID, CMP, T7, URIC #### [facility] [address] [address] [address] Therese Vincent HDL NORMAL > or = 60 mg/dl - LO W CARDIOVASCULAR RISK <40 mg/dl - HIGH CARDIOVASCULAR RISK Normal [facility] Comment on above: Performed By: #### T SH, LIPID, CMP, T7, URIC #### [facility] [address] [address] [address] Therese Vincent LDL CALC NORMAL SEE BELOW Normal [facility] Comment on above: Result Comment: <100 mg/dl OPTIMAL 100 - 129 mg/dl NEAR OR ABOVE OPTIMAL 130 - 159 mg/dl BORDERLINE HIGH 160 - 189 mg/dl HIGH >190 mg/dl VERY HIGH Performed By: #### T SH, LIPID, CMP, T7, URIC #### [facility] [address] [address] [address] Therese Vincent Triglyceride [Mass/Vol] 110 mg/dL Normal <=150 [facility] Comment on above: Performed By: #### T SH, LIPID, CMP, T7, URIC #### [facility] [address] [address] [address] Therese Vincent VLDL CALC 22.0 mg/dL Normal [facility] Comment on above: Performed By: #### T SH, LIPID, CMP, T7, URIC #### [facility] [address] [address] [address] Therese Vincent PROF 14(COMP METB)on 023 Albumin [Mass/Vol] 4.0 g/dL Normal 3.4-5.0 [facility] Comment on above: Performed By: #### T SH, LIPID, CMP, T7, URIC #### [facility] [address] [address] [address] Therese Vincent Albumin/Globulin [Mass ratio] 1.0 {ratio} Normal [facility] Comment on above: Performed By: #### T SH, LIPID, CMP, T7, URIC #### [facility] [address] [address] [address] Therese Vincent ALP [Catalytic activity/Vol] 77 U/L Normal 46-116 [facility] Comment on above: Performed By: #### T SH, LIPID, CMP, T7, URIC #### [facility] [address] [address] [address] Therese Vincent ALT [Catalytic activity/Vol] 27 U/L Normal 16-63 [facility] Comment on above: Performed By: #### T SH, LIPID, CMP, T7, URIC #### [facility] [address] [address] [address] Therese Vincent Anion gap [Moles/Vol] 12.8 mmol/L Normal [facility] Comment on above: Performed By: #### T SH, LIPID, CMP, T7, URIC #### [facility] [address] [place] [address] Dr. Therese Vincent AST [Catalytic activity/Vol] 14 U/L Critically low 15-37 [facility] Comment on above: Performed By: #### T SH, LIPID, CMP, T7, URIC #### [facility] [address] [place] [address] Dr. Therese Vincent Bilirubin [Mass/Vol] 0.6 mg/dL Normal 0.2-1.0 [facility] Comment on above: Performed By: #### T SH, LIPID, CMP, T7, URIC #### [facility] [address] [place] [address] Dr. Therese Vincent Calcium [Mass/Vol] 9.7 mg/dL Normal 8.5-10.1 [facility] Comment on above: Performed By: #### T SH, LIPID, CMP, T7, URIC #### [facility] [address] [place] [address] Dr. Therese Vincent Chloride [Moles/Vol] 106 mmol/L Normal 98-107 [facility] Comment on above: Performed By: #### T SH, LIPID, CMP, T7, URIC #### [facility] [address] [place] [address] Dr. Therese Vincent CO2 [Moles/Vol] 28.8 mmol/L Normal 21.0-32.0 [facility] Comment on above: Performed By: #### T SH, LIPID, CMP, T7, URIC #### [facility] [address] [place] [address] Dr. Therese Vincent Creatinine [Mass/Vol] 1.18 mg/dL Normal 0.70-1.30 [facility] Comment on above: Performed By: #### T SH, LIPID, CMP, T7, URIC #### [facility] [address] [place] [address] Dr. Therese Vincent EGFR-AF SAMOAN >60 Normal >=60 [facility] Comment on above: Performed By: #### T SH, LIPID, CMP, T7, URIC #### [facility] [address] [address] [address] Therese Vincent EGFR-NON AF SAMOAN =60 Normal >=60 [facility] Comment on above: Performed By: #### T SH, LIPID, CMP, T7, URIC #### [facility] [address] [place] [address] Dr. Therese Vincent Globulin (S) [Mass/Vol] 3.9 g/dL Normal [facility] Comment on above: Performed By: #### T SH, LIPID, CMP, T7, URIC #### [facility] [address] [place] [address] Dr. Therese Vincent Glucose [Mass/Vol] 109 mg/dL Critically high 74-106 [facility] Comment on above: Performed By: #### T SH, LIPID, CMP, T7, URIC #### [facility] [address] [place] [address] Dr. Therese Vincent Potassium [Moles/Vol] 4.6 mmol/L Normal 3.5-5.1 [facility] Comment on above: Performed By: #### T SH, LIPID, CMP, T7, URIC #### [facility] [address] [place] [address] Dr. Therese Vincent Protein [Mass/Vol] 7.9 g/dL Normal 6.4-8.2 [facility] Comment on above: Performed By: #### T SH, LIPID, CMP, T7, URIC #### [facility] [address] [place] [address] Dr. Therese Vincent Sodium [Moles/Vol] 143 mmol/L Normal 136-145 [facility] Comment on above: Performed By: #### T SH, LIPID, CMP, T7, URIC #### [facility] [address] [place] [address] Dr. Therese Vincent Urea nitrogen [Mass/Vol] 14.0 mg/dL Normal 7.0-18.0 [facility] Comment on above: Performed By: #### T SH, LIPID, CMP, T7, URIC #### [facility] [address] [address] [address] Therese Vincent Urea nitrogen/Creatinine [Mass ratio] 11.9 mg/mg Normal [facility] Comment on above: Performed By: #### T SH, LIPID, CMP, T7, URIC #### [facility] [address] [place] [address] Dr. Therese Vincetn TSHon 03-22-2023 TSH 3.745 uIU/mL Critically high 0.358-3.740 [facility] Comment on above: Performed By: #### T SH, LIPID, CMP, T7, URIC #### [facility] [address] [place] [address] Dr. Therese Vincent URIC ACID SERUMon 03-22-2023 Urate [Mass/Vol] 3.7 mg/dL Normal 3.5-7.2 [place] Comment on above: Performed By: #### T SH, LIPID, CMP, T7, URIC #### [facility] [address] [place] [address] Dr. Therese Vincent Vital Signs Date Time Vital Sign Value Performing Clinician Adriannai rin 12-05-2024 13:55-0500 Blood Pressure Location Kostas BOWSER [facility] 12-05-2024 13:55-0500 Diastolic blood pressure 75 mm[Hg] Kostas BOWSER [facility] 12-05-2024 13:55-0500 Heart rate 57 /min Kostas BOWSER [facility] 12-05-2024 13:55-0500 Respiratory rate 16 /min Kostas BOWSER [facility] 12-05-2024 13:55-0500 Systolic blood pressure 137 mm[Hg] Kostas BOWSER [facility] Encounters Encounter Date Encounter Type Care Provider Facility Start: 12-05-2024 End: 12-05-2024 ambulatory Kostas BOWSER Facility:[facility] Start: 12-05-2024 End: 12-05-2024 Patient encounter procedure Kostas Lisa NILL [facility] Start: 11-08-2024 ambulatory Kostas NILL Facility:[facility] Start: 03-26-2023 Encounter for genera l adult medical examination without abnormal findings GUANACO CAMPOS [facility] Start: 03-22-2023 End: 03-23-2023 ambulatory BELLA DE PAZ Facility: Start: 03-22-2023 End: 03-23-2023 Encounter for general adult medical examination without abnormal findings BELLA DE PAZ Facility:[facility] Procedures Date Procedure Procedure Detail Performing Clinician Start: 03-22-2023 PSA screening BELLA PENA Comment on above: Performed By: #### P [facility] #### [facility] [address] [place] [address] Dr. Therese Vincent Colonoscopy Kostas NILL Colonoscopy Kostas NILL Reattachment of finger Tigre josefina NILL Repair of left ingui nal hernia Kostas NILL Immunizations Immunization Date Immunization Notes Care Provider Loyda hayes 02-26-2021 SARS-CoV-2 (COVID-19 ) mRNA-1273 vaccine Kostas NILL [facility] Comment on above: Result Comment: 2023: [id number] 01-29-2021 SARS-CoV-2 (COVID-19 ) mRNA-1273 vaccine Kostas NILL [facility] Comment on above: Result Comment: 2023: [id number] Payers Date Payer Category Payer Medicare [id number] 1945 Unknown [id number] 1945 Unknown [id number] Social History Date Type Detail Facility Start: 12-05-2024 Tobacco smoking status Ex-smoker (fi nding) [facility] Tobacco smoking status Never [place] [facility] Sex Assigned At Male [facility] Functional Status Date Assessment Result Facility 12-05-2024 Functional Status N/A [facility] Clinical Note 12-05-2024 Note Date & Type Note Facility 12-05-2024 Note [facility] Note Chief Complaint consultation [...] vaccine 02/26/2021 Recorded (more content not included)... [facility] Comment on above: Result Comment: Elec tronically Signed By: NIELS DALAL, Kostas Bolivar\Date and Time Signed: 12/05/24 14:30 EST Evaluation + Plan note Note Date & Type Note Facility Evaluation + Plan note No data available for this section [facility] Discharge instructions Note Date & Type Note Facility Hospital Discharge instructions No data available for this section [facility] Progress note Note Date & Type Note Facility Progress note No data available for this section [facility] Summary Purpose Family History No Family History Records FoundNo Family History Records Found No data available for this section Advance Directives No Advanced Directives Records FoundNo Advanced Directives Records Found Additional Source Comments (unrecognized sect ion and content) No Status Records FoundNo Status Records Found INFORMATION SOURCE (unrecogn ized section and content) DATE CREATED AUTHOR 03/26/2023 [facility] DATE CREATED AUTHOR AUTHOR'S ORGANIZ ATION 12/07/2024 Gabriel Mikey [facility] Patient Care team informatio n (unrecognized section and content) Personnel Name: FRANCINE ALAN GUANACO Ramo Address: Address: [address] [place], [place] [address] FOR RECORDS PERTAINING TO PATIENTS WHO ARE [...] BE BASED ON THE PRIMARY CLINICAL RECORDS. [facility] [employer] provides no warranty or guarantee of the accuracy or completeness of information in this document.
[2024-12-26 07:15] VITALS: BP 139/70; PULSE 66; TEMP 36.1; O2SAT 99; BMI 22.7
[2024-12-26] MEDS: 0.9 % SODIUM CHLORIDE 500 ML 50 ML IV (07:38)
[2024-12-26 09:33] VITALS: BP 93/57; PULSE 74; TEMP 36.3; O2SAT 97
[2024-12-26 09:48] VITALS: BP 107/66; PULSE 80; TEMP 36.3; O2SAT 97
[2024-12-26 10:03] VITALS: BP 116/66; PULSE 72; TEMP 36.2; O2SAT 97
== END 2024-12-26 10:03 | disposition home or self-care (01) ==
PROVIDERS: PCP Nurse Practitioner Family; Visit Provider Surgery
PROC: (CPT 43235; principal; 2024-12-26 09:00)
DX: R19.5 Other fecal abnormalities (principal); D12.5 Benign neoplasm of sigmoid colon; K21.9 Gastro-esophageal reflux disease without esophagitis; K44.9 Diaphragmatic hernia without obstruction or gangrene; K57.30 Diverticulosis of large intestine without perforation or abscess without bleeding; E78.00 Pure hypercholesterolemia, unspecified; I10 Essential (primary) hypertension; M10.9 Gout, unspecified; Z87.891 Personal history of nicotine dependence; D50.9 Iron deficiency anemia, unspecified
CPT/HCPCS: 43235; 45385; 88305; J1100; J2371; J2405; J2704

== ENCOUNTER 2025-01-11 09:53 | Outpatient (OUT) | payer MEDICARE, SELFPAY ==
--- OUTSIDE RECORDS SUMMARY | 2025-01-11 09:59 | XMS_ITS | CCD ---
Author Organization [facility] Care Team Providers Care Motorcycle Riding Instructor Name Role Phone ZANDRABELLA ANJALI Primary Care Unavailable GUANACO CAMPOS Attending Unavailable GUANACO CAMPOS Consulting Unavailable GUANACO CAMPOS Admitting Unavailable GUANACO CAMPOS Primary Care Physician Kostas BOWSER Attending Unavailable Kostas BOWSER Attending Unavailable Kostas BOWSER Attending Unavailable Allergies Allergy Classification Reported Allergen(s) Allergy Type Date of Onset Reaction(s) Facility (3 sources) Cetirizine; Translations: [cetirizine] Drug Allergy felt off [facility] General Surgery Chandrika Medications Current Medications Medication Drug Class(es) Dates Sig (Normalized) Sig (Original) allopurinol 300 mg oral tablet (2 sources) Xanthine Oxidase Inhibitor Start: 11-19-2024 take 1 tablet by mouth once daily allopurinol 300 mg Tab 300 mg = 1 tab(s), Oral, Daily, Refills(s) 0 Start Date: 11/19/24 Status: Ordered amLODIPine 5 mg / olmesartan medoxomil 20 mg oral tablet (2 sources) Dihydropyridine Calcium Channel Kailey, Angiotensin 2 Receptor Kailey Start: 11-19-2024 amlodipine-olmesa rtan 5 mg-20 mg oral tablet 1 tab(s), Oral, Daily, 30 tab(s), Refill(s) 0 Start Date: 11/19/24 Status: Ordered ferrous sulfate 325 mg oral tablet (2 sources) Start: 11-19-2024 ferrous sulfate 325 mg Tab 325 mg = 1 tab(s), Oral, MonWedFri, Refills(s) 0 Start Date: 11/19/24 Status: Ordered Problems Problem Classification Problem Date Documented Date Episodic/Chronic Abdominal hernia (2 sources) Diaphragmatic hernia; Translations: [Diaphragmatic hernia without obstruction or gangrene] Onset: 01-08-20 25 Episodic Deficiency and other anemia (3 sources) Iron deficiency anemia; Translations: [Iron deficiency anemia, unspecified] Onset: 12-05-19 Episodic Deficiency and other anemia (2 sources) Anemia 11-15-2024 Episodic Diabetes mellitus without complication (1 source) Other abnormal glucose; Translations: [OTHER ABNORMAL GLUCOSE] Onset: 03-26-20 Episodic Disorders of lipid metabolism (2 sources) Pure hypercholesterolemia 11-15-2024 Chroni c Diverticulosis and diverticulitis (3 sources) Diverticula of intestine; Translations: [Diverticulosis of large intestine without perforation or abscess without bleeding] Onset: 01-08-20 Chronic Esophageal disorders (5 sources) Gastroesophageal reflux disease without esophagitis; Translations: [Gastro-esophageal reflux disease without esophagitis] Onset: 12-05-19 Chronic Essential hypertension (3 sources) Essential (primary) hypertension; Translations: [Essential hypertension] Onset: 03-26-2011-15-2024 Chronic Gout and other crystal arthropathies (2 sources) Gout 11-15-2024 Chronic Other and unspecified benign neoplasm (1 source) Benign neoplasm of colon; Translations: [Benign neoplasm of colon, unspecified] Onset: 01-08-20 Episodic Other and unspecified benign neoplasm (1 source) Adenomatous polyp of colon 01-08-2025 Episodic Other and unspecified benign neoplasm (1 source) History of polyp of colon 12-27-2024 Episod ic Other gastrointestinal disorders (1 source) Abnormal feces; Translations: [Other fecal abnormalities] Onset: 12-05-19 Episodic Other gastrointestinal disorders (3 sources) Occult blood in stools 11-19-2024 Episodic Other screening for suspected conditions (not mental disorders or infectious disease) (3 sources) Encounter for screening for malignant neoplasm of prostate; Translations: [Raised prostate specific antigen] Onset: 03-26-2011-19-2024 Episodic Other upper respiratory disease (2 sources) Seasonal allergic rhinitis 11-15-2024 Chronic Results Test Name Value Interpretation Reference Range Facility Ambulatory Visit Summaryon 0 01-08-2025 Ambulatory Visit Summary Ambulatory Visit Summary MAMTA GRAJEDA :1945 Visit Date:01/08/2025 Ambulatory Visit Instructions Your Diagnosis Tubulovillous adenoma of colon Diverticulosis of sigmoid colon Hiatal hernia with GERD Gastro-esophageal reflux disease without esophagitis Your Care Team Attending Physician - NIELS DALAL, Kostas Gonzalez Primary Care Physician - FRANCINE PHILLIPS, GUANACO Ralph This Is Your Medications List Contact prescribing physician if questions or concerns allopurinol (allopurinol 300 mg Tab) amlodipine-olmesartan (amlodipine-olmesartan 5 mg-20 mg oral tablet) ferrous sulfate (ferrous sulfate 325 mg Tab) Procedures Performed Colonoscopy (12/26/2024), EGD - esophagogastroduodenoscopy (12/26/2024), Colonoscopy, Colonoscopy, Reattachment of finger, Repair of left inguinal hernia. Medications What How Much When Instructions Unchanged [...] you are currently receiving treatment for. Anemia Chronic GERD Diverticulosis of sigmoid colon Elevated PSA Essential hypertension Gout Hiatal hernia Hiatal hernia with GERD History of colon polyps Iron deficiency anemia Positive fecal occult blood test Pure hypercholesterolemia Seasonal allergic rhinitis Sigmoid diverticulosis Tubulovillous adenoma of colon Patient Survey You may receive a survey via text or e-mail asking about your office visit. Please share your experience with us by completing your survey. We appreciate your feedback and thank you for choosing us for your care. Normal [facility] General Surgery Office/Clini c Noteon 01-08-2025 General Surgery Office/Clinic Note General Surgery Office/Clinic Note Chief Complaint colonoscopy follow up HPI Staff 13 day post operative follow up post EGD and colonoscopy with sigmoid polypectomy. History of Present Illness s/p EGD/colonoscopy due to positive fecal occult blood test; iron deficiency anemia, and GERD; found small hiatal hernia, severe sigmoid diverticulosis, and 2 cm pedunculated sigmoid polyp, completely removed with hot snare, pathology with tubulovillous adenoma. denies abd pain or blood in stools; denies GERD; bowels moving well, constipation improved. Review of Systems PHQ Score Initial Depression [...] been reviewed and are negative or noncontributory. Assessment/Plan 1. Tubulovillous adenoma of colon (D12.6: Benign neoplasm of colon, unspecified) plan surveillance colonoscopy in 1 year, call sooner if problems/questions. 2. Diverticulosis of sigmoid colon (K57.30: Diverticulosis of large intestine without perforation or abscess without bleeding) high fiber diet and daily fiber supplement. 3. Hiatal hernia with GERD (K44.9: Diaphragmatic hernia without obstruction or gangrene) diet control; improved. Gastro-esophageal reflux disease without esophagitis (K21.9: Gastro-esophageal reflux disease without esophagitis) Follow-up No qualifying data available Problem List/Past Medical History Ongoing Anemia Chronic GERD Diverticulosis of sigmoid colon Elevated PSA Essential hypertension Gout Hiatal hernia Hiatal hernia with GERD History of colon polyps Iron deficiency anemia Positive fecal occult blood test Pure hypercholesterolemia Seasonal allergic rhinitis Sigmoid diverticulosis Tubulovillous adenoma of colon Historical No qualifying data Procedure/Surgical History Colonoscopy (12/26/2024), EGD - esophagogastroduodenoscopy (12/26/2024), Colonoscopy, Colonoscopy, Reattachment of finger, Repair of [...] age 15.0 Years. Stopped age 34 Years., 01/08/2025 Family History Leukemia: Mother. Immunizations Vaccine Date Status Comments SARS-CoV-2 (COVID-19) mRNA-1273 vaccine 02/26/2021 Recorded 2024-11-19: [id number] SARS-CoV-2 (COVID-19) mRNA-1273 vaccine 01/29/2021 Recorded 2024-11-15: [id number] Normal [facility] Comment on above: Result Comment: Elec tronically Signed By: NIELS DALAL, Kostas Gonzalez\.br\Date and Time Signed: 01/08/25 14:21 EST Reminderson 01-08-2025 Reminders Reminders From: Venus Acosta LPN To: N - Clinical; Sent: 01/08/2025 14:18:39 EST Show up: 11/25/2025 07:00:00 EST Subject: colonosocpy recall Due Date/Time: 12/26/2025 07:00:00 EST Reminder/Recall Patient due for surveillance colonoscopy 12/26/2025 due to history of tubulovillous adenoma. Normal [facility] Ambulatory Visit Summaryon 0 12-05-2024 Ambulatory Visit Summary Ambulatory Visit Summary MAMTA GRAJEDA :1945 Visit Date:12/05/2024 Ambulatory Visit Instructions Your [...] for choosing us for your care. Normal [facility] INSULINon 03-23-2023 Insulin 10.4 uIU/mL Normal 2.6-24.9 [facility] Comment on above: Performed By: #### I NSULIN #### [facility] [address] [place] [address] Dr. Therese Vincent CBC AUTO DIFFon 03-22-2023 BASO # 0.1 103/ul Normal 0.0-0.1 [facility] Comment on above: Performed By: #### C BC #### [facility] [address] [address] [address] Therese Vincent Basophils/100 WBC (Bld) 0.9 % Normal 0.2-2.0 [facility] Comment on above: Performed By: #### C BC #### [facility] [address] [address] [address] Therese Vincent EO # 0.1 103/ul Normal 0.0-0.7 [facility] Comment on above: Performed By: #### C BC #### [facility] [address] [place] [address] Dr. Therese Vincent Eosinophils/100 WBC (Bld) 2.2 % Normal 0.9-7.0 [facility] Comment on above: Performed By: #### C BC #### [facility] [address] [place] [address] Dr. Therese Vincent Erythrocyte distribution width (RBC) [Ratio] 13.4 % Normal 11.0-15.0 [facility] Comment on above: Performed By: #### C BC #### [facility] [address] [place] [address] Dr. Therese Vincent Hematocrit (Bld) [Volume fraction] 44.8 % Normal 42.0-54.0 [facility] Comment on above: Performed By: #### C BC #### [facility] [address] [place] [address] Dr. Therese Vincent Hemoglobin (Bld) [Mass/Vol] 14.8 g/dL Normal 14.0-18.0 [facility] Comment on above: Performed By: #### C BC #### [facility] [address] [place] [address] Dr. Therese Vincent IG # 0.02 10e3/ul Normal 0.00-0.03 [facility] Comment on above: Performed By: #### C BC #### [facility] [address] [place] [address] Dr. Therese Vincent IG % 0.3 % Normal 0.0-0.5 [facility] Comment on above: Performed By: #### C BC #### [facility] [address] [place] [address] Dr. Therese Vincent LYMPH # 2.0 103/ul Normal 1.2-3.8 [facility] Comment on above: Performed By: #### C BC #### [facility] [address] [place] [address] Dr. Therese Vincent Lymphocytes/100 WBC (Bld) 33.9 % Normal 20.5-60.0 [facility] Comment on above: Performed By: #### C BC #### [facility] [address] [place] [address] Dr. Therese Vincent MANUAL DIFF REQ NO Normal [facility] Comment on above: Performed By: #### C BC #### [facility] [address] [place] [address] Dr. Therese Vincent MCH (RBC) [Entitic mass] 28.2 pg Normal 25.9-34.0 [facility] Comment on above: Performed By: #### C BC #### [facility] [address] [place] [address] Dr. Therese Vincent MCHC (RBC) [Mass/Vol] 33.0 g/dL Normal 29.9-35.2 [facility] Comment on above: Performed By: #### C BC #### [facility] [address] [place] [address] Dr. Therese Vincent MCV (RBC) [Entitic vol] 85.3 fL Normal 80.0-94.0 [facility] Comment on above: Performed By: #### C BC #### [facility] [address] [place] [address] Dr. Therese Vincent MONO # 0.3 103/ul Normal 0.3-0.8 [facility] Comment on above: Performed By: #### C BC #### [facility] [address] [place] [address] Dr. Therese Vincent Monocytes/100 WBC (Bld) 5.5 % Normal 1.7-12.0 [facility] Comment on above: Performed By: #### C BC #### [facility] [address] [place] [address] Dr. Therese Vincent NEUT # 3.3 103/ul Normal 1.4-6.5 [facility] Comment on above: Performed By: #### C BC #### [facility] [address] [place] [address] Dr. Therese Vincent Neutrophils/100 WBC (Bld) 57.2 % Normal 43.0-75.0 [facility] Comment on above: Performed By: #### C BC #### [facility] [address] [address] [address] Therese Vincent Platelet mean volume (Bld) [Entitic vol] 8.8 fL Critically low 9.5-13.5 [facility] Comment on above: Performed By: #### C BC #### [facility] [address] [address] [address] Therese Vincent PLT 321 103/ul Normal 150-450 [facility] Comment on above: Performed By: #### C BC #### [facility] [address] [place] [address] Dr. Therese Vincent RBC 5.25 106/ul Normal 4.70-6.10 [facility] Comment on above: Performed By: #### C BC #### [facility] [address] [place] [address] Dr. Therese Vincent WBC 5.8 103/ul Normal 4.0-11.0 [facility] Comment on above: Performed By: #### C BC #### [facility] [address] [place] [address] Dr. Therese Vincent FREE THYROXINE INDEX T7on FTI 2.70 Normal 1.30-4.50 [facility] Comment on above: Performed By: #### T SH, LIPID, CMP, T7, URIC #### [facility] [address] [place] [address] Dr. Therese Vincent T3U 29.0 % Critically low 33.0-40.0 [facility] Comment on above: Performed By: #### T SH, LIPID, CMP, T7, URIC #### [facility] [address] [place] [address] Dr. Therese Vincent T4 [Mass/Vol] 9.30 ug/dL Normal 4.50-12.10 [facility] Comment on above: Performed By: #### T SH, LIPID, CMP, T7, URIC #### [facility] [address] [place] [address] Dr. Therese Vincent GLYCOHEMOGLOBIN A1Con 2022 ADA RECOMMENDATION SEE BELOW Normal [facility] Comment on above: Result Comment: ADA RECOMMENDED LIMIT 4.0 - 6.0 ADA THERAPEUTIC TARGET < 7.0 ACTION SUGGESTED > 7.0 Performed By: #### A 1C #### [facility] [address] [place] [address] Dr. Therese Vincent Glucose [Mass/Vol] 108 mg/dL Normal [facility] Comment on above: Performed By: #### A 1C #### [facility] [address] [address] [address] hTerese Vincent HbA1c (Bld) [Mass fraction] 5.4 % Normal 4.5-6.2 [facility] Comment on above: Performed By: #### A 1C #### [facility] [address] [place] [address] Dr. Therese Vincent LIPID PROFILEon 03-22-2023 CHOL-HDL RATIO NORM SEE BELOW Normal [facility] Comment on above: Result Comment: 3.3 - 4.4 LOW RISK 4.4 - 7.1 AVERAGE RISK 7.1 - 11.0 MODERATE RISK >11.0 HIGH RISK Performed By: #### T SH, LIPID, CMP, T7, URIC #### [facility] [address] [place] [address] Dr. Therese Vincent Cholesterol [Mass/Vol] 205 mg/dL Critically high <=200 [facility] Comment on above: Performed By: #### T SH, LIPID, CMP, T7, URIC #### [facility] [address] [place] [address] Dr. Therese Vincent Cholesterol in HDL [Mass/Vol] 47 mg/dL Normal 40-60 [facility] Comment on above: Performed By: #### T SH, LIPID, CMP, T7, URIC #### [facility] [address] [place] [address] Dr. Therese Vincent Cholesterol in LDL [Mass/Vol] 136.0 mg/dL Normal [facility] Comment on above: Performed By: #### T SH, LIPID, CMP, T7, URIC #### [facility] [address] [place] [address] Dr. Therese Vincent Cholesterol.total/ Cholesterol in HDL [Mass ratio] 4.4 {ratio} Normal [facility] Comment on above: Performed By: #### T SH, LIPID, CMP, T7, URIC #### [facility] [address] [address] [address] Therese Vincent HDL NORMAL > or = 60 mg/dl - LO W CARDIOVASCULAR RISK <40 mg/dl - HIGH CARDIOVASCULAR RISK Normal [facility] Comment on above: Performed By: #### T SH, LIPID, CMP, T7, URIC #### [facility] [address] [address] [address] Therese Vincent LDL CALC NORMAL SEE BELOW Normal [facility] Comment on above: Result Comment: <100 mg/dl OPTIMAL 100 - 129 mg/dl NEAR OR ABOVE OPTIMAL 130 - 159 mg/dl BORDERLINE HIGH 160 - 189 mg/dl HIGH >190 mg/dl VERY HIGH Performed By: #### T SH, LIPID, CMP, T7, URIC #### [facility] [address] [place] [address] Dr. Therese Vincent Triglyceride [Mass/Vol] 110 mg/dL Normal <=150 [facility] Comment on above: Performed By: #### T SH, LIPID, CMP, T7, URIC #### [facility] [address] [address] [address] Therese Vincent VLDL CALC 22.0 mg/dL Normal [facility] Comment on above: Performed By: #### T SH, LIPID, CMP, T7, URIC #### [facility] [address] [place] [address] Dr. Therese Vincent PROF 14(COMP METB)on 023 Albumin [Mass/Vol] 4.0 g/dL Normal 3.4-5.0 [facility] Comment on above: Performed By: #### T SH, LIPID, CMP, T7, URIC #### [facility] [address] [place] [address] Dr. Therese Vincent Albumin/Globulin [Mass ratio] 1.0 {ratio} Normal [facility] Comment on above: Performed By: #### T SH, LIPID, CMP, T7, URIC #### [facility] [address] [address] [address] Therese Vincent ALP [Catalytic activity/Vol] 77 U/L Normal 46-116 [facility] Comment on above: Performed By: #### T SH, LIPID, CMP, T7, URIC #### [facility] [address] [address] [address] Therese Vincent ALT [Catalytic activity/Vol] 27 U/L Normal 16-63 [facility] Comment on above: Performed By: #### T SH, LIPID, CMP, T7, URIC #### [facility] [address] [place] [address] Dr. Therese Vincent Anion gap [Moles/Vol] 12.8 mmol/L Normal [facility] Comment on above: Performed By: #### T SH, LIPID, CMP, T7, URIC #### [facility] [address] [place] [address] Dr. Therese Vincent AST [Catalytic activity/Vol] 14 U/L Critically low 15-37 [facility] Comment on above: Performed By: #### T SH, LIPID, CMP, T7, URIC #### [facility] [address] [place] [address] Dr. Therese Vincent Bilirubin [Mass/Vol] 0.6 mg/dL Normal 0.2-1.0 [facility] Comment on above: Performed By: #### T SH, LIPID, CMP, T7, URIC #### [facility] [address] [place] [address] Dr. Therese Vincent Calcium [Mass/Vol] 9.7 mg/dL Normal 8.5-10.1 [facility] Comment on above: Performed By: #### T SH, LIPID, CMP, T7, URIC #### [facility] [address] [place] [address] Dr. Therese Vincent Chloride [Moles/Vol] 106 mmol/L Normal 98-107 [facility] Comment on above: Performed By: #### T SH, LIPID, CMP, T7, URIC #### [facility] [address] [place] [address] Dr. Therese Vincent CO2 [Moles/Vol] 28.8 mmol/L Normal 21.0-32.0 [facility] Comment on above: Performed By: #### T SH, LIPID, CMP, T7, URIC #### [facility] [address] [address] [address] Therese Vincent Creatinine [Mass/Vol] 1.18 mg/dL Normal 0.70-1.30 [facility] Comment on above: Performed By: #### T SH, LIPID, CMP, T7, URIC #### [facility] [address] [place] [address] Dr. Therese Vincent EGFR-AF LITHUANIAN >60 Normal >=60 [facility] Comment on above: Performed By: #### T SH, LIPID, CMP, T7, URIC #### [facility] [address] [place] [address] Dr. Therese Vincent EGFR-NON AF LITHUANIAN =60 Normal >=60 [facility] Comment on above: Performed By: #### T SH, LIPID, CMP, T7, URIC #### [facility] [address] [place] [address] Dr. Therese Vincent Globulin (S) [Mass/Vol] 3.9 g/dL Normal [facility] Comment on above: Performed By: #### T SH, LIPID, CMP, T7, URIC #### [facility] [address] [place] [address] Dr. Therese Vincent Glucose [Mass/Vol] 109 mg/dL Critically high 74-106 [facility] Comment on above: Performed By: #### T SH, LIPID, CMP, T7, URIC #### [facility] [address] [place] [address] Dr. Therese Vincent Potassium [Moles/Vol] 4.6 mmol/L Normal 3.5-5.1 [facility] Comment on above: Performed By: #### T SH, LIPID, CMP, T7, URIC #### [facility] [address] [place] [address] Dr. Therese Vincent Protein [Mass/Vol] 7.9 g/dL Normal 6.4-8.2 [facility] Comment on above: Performed By: #### T SH, LIPID, CMP, T7, URIC #### [facility] [address] [place] [address] Dr. Therese Vincent Sodium [Moles/Vol] 143 mmol/L Normal 136-145 [facility] Comment on above: Performed By: #### T SH, LIPID, CMP, T7, URIC #### [facility] [address] [place] [address] Dr. Therese Vincent Urea nitrogen [Mass/Vol] 14.0 mg/dL Normal 7.0-18.0 [facility] Comment on above: Performed By: #### T SH, LIPID, CMP, T7, URIC #### [facility] [address] [place] [address] Dr. Therese Vincent Urea nitrogen/Creatinin e [Mass ratio] 11.9 mg/mg Normal [facility] Comment on above: Performed By: #### T SH, LIPID, CMP, T7, URIC #### [facility] [address] [place] [address] Dr. Therese Vincent TSHon 03-22-2023 TSH 3.745 uIU/mL Critically high 0.358-3.740 [facility] Comment on above: Performed By: #### T SH, LIPID, CMP, T7, URIC #### [facility] [address] [place] [address] Dr. Therese Vincent URIC ACID SERUMon 03-22-2023 Urate [Mass/Vol] 3.7 mg/dL Normal 3.5-7.2 [facility] Comment on above: Performed By: #### T SH, LIPID, CMP, T7, URIC #### [facility] [address] [place] [address] Dr. Therese Vincent Vital Signs Date Time Vital Sign Value Performing Clinician Adriannai lity 12-05-2024 13:55-0500 Blood Pressure Location Kostas BOWSER [facility] [place] 12-05-2024 13:55-0500 Diastolic blood pressure 75 mm[Hg] Kostas BOWSER [facility] 12-05-2024 13:55-0500 Heart rate 57 /min Kostas BOWSER [facility] 12-05-2024 13:55-0500 Respiratory rate 16 /min Kostas NILL [facility] 12-05-2024 13:55-0500 Systolic blood pressure 137 mm[Hg] Kostas NILL [facility] Encounters Encounter Date Encounter Type Care Provider Facility Start: 01-08-2025 End: 01-08-2025 ambulatory Kostas R NILL Facility:[facility] Start: 01-08-2025 End: 01-08-2025 Patient encounter procedure Kostas R NILL [facility] Start: 12-26-2024 End: 12-26-2024 ambulatory Kostas R NILL Facility:CD:[id number] Start: 12-05-2024 End: 12-05-2024 ambulatory Kostas R NILL Facility:[facility] Start: 12-05-2024 End: 12-05-2024 Patient encounter procedure Kostas R NILL [facility] Start: 11-08-2024 ambulatory Kostas NILL Facility:[facility] Start: 03-26-2023 Encounter for genera l adult medical examination without abnormal findings GUANACO CAMPOS [facility] Start: 03-22-2023 End: 03-23-2023 ambulatory BELLA DE PAZ Facility:[facility] Start: 03-22-2023 End: 03-23-2023 Encounter for general adult medical examination without abnormal findings BELLA DE PAZ Facility:[facility] Procedures Date Procedure Procedure Detail Performing Clinician Start: 12-26-2024 Colonoscopy Kostas NAVAS Start: 12-26-2024 Esophagogastroduodenoscopy Kostas BOWSER Start: 03-22-2023 PSA screening BELLA PENA Comment on above: Performed By: #### [facility] #### [facility] [address] [address] [address] Therese Vincent Colonoscopy Kostas NILL Colonoscopy Kostas NILL Reattachment of finger Tigre josefina NILL Repair of left inguinal hernia Kostas NILL Immunizations Immunization Date Immunization Notes Care Provider Fa abigail 02-26-2021 SARS-CoV-2 (COVID-19 ) mRNA-1273 vaccine Kostas NILL [facility] Comment on above: Result Comment: 2023: [id number] 01-29-2021 SARS-CoV-2 (COVID-19 ) mRNA-1273 vaccine Kostas NILL [facility] Comment on above: Result Comment: 2023: [id number] Payers Date Payer Category Payer Medicare [id number] 1945 Unknown [id number] 1945 Unknown [id number] 1945 Unknown [id number] 1945 Unknown [id number] Social History Date Type Detail Facility Start: 12-05-2024 End: 01-08-2025 Tobacco smoking status Ex-smoker (finding) [facility] Tobacco smoking status Never Donta [facility] Sex Assigned At Male [facility] Functional Status Date Assessment Result Facility 01-08-2025 Functional Status N/A [facility] 12-05-2024 Functional Status N/A [facility] Clinical Note 12-05-2024 Note Date & Type Note Facility 12-05-2024 Note General Surgery Offi ce/Clinic Note Chief Complaint consultation [...] vaccine 02/26/2021 Recorded (more content not included)... [facility] Comment on above: Result Comment: Elec tronically Signed By: NIELS DALAL, Kostas Bolivar\Date and Time Signed: 12/05/24 14:30 EST Evaluation + Plan note Note Date & Type Note Facility Evaluation + Plan note No data available for this section [facility] Discharge instructions Note Date & Type Note Facility Hospital Discharge instructions No data available for this section [facility] note Note Date & Type Note Facility Progress note No data available for this section [facility] Summary Purpose Family History No Family History Records Found No data available for this section No data available for this section No Family History Records Found Advance Directives No Advanced Directives Records FoundNo Advanced Directives Records Found Additional Source Comments (unrecognized sect ion and content) No Status Records FoundNo Status Records Found INFORMATION SOURCE (unrecogn ized section and content) DATE CREATED AUTHOR 03/26/2023 [facility] DATE CREATED AUTHOR AUTHOR'S ORGANIZ ATION 01/10/2025 [facility] Patient Care team informatio n (unrecognized section and content) Personnel Name: GUANACO CAMPOS CNP Address: Address: [address] [place] [address] Personnel Name: GUANACO CAMPOS CNP Address: Address: [address] [place] [address] FOR RECORDS PERTAINING TO PATIENTS WHO ARE [...] BE BASED ON THE PRIMARY CLINICAL RECORDS. [facility] [employer] [facility]. provides no warranty or guarantee of the accuracy or completeness of information in this document.
[2025-01-12 04:11] LABS: Prostate Specific Ag 4.7 ng/mL (0.0-4.0)
== END 2025-01-11 09:54 | disposition home or self-care (01) ==
LOC: LAB 09:56
PROVIDERS: PCP Nurse Practitioner Family; Visit Provider Nurse Practitioner Family
DX: R97.20 Elevated prostate specific antigen [PSA] (principal)
CPT/HCPCS: 36415; 84153; 84154